=== PATIENT | male | born 1950 | race Caucasian/White ===

== ENCOUNTER 2019-12-14 06:35 | Outpatient (REF) | payer MEDICARE, OTHER, SELFPAY ==
[2019-12-14 08:06] LABS: MANUAL DIFF FLAG NO
[2019-12-14 08:14] LABS: Basophils Percent Auto 0.4 % (0-2); Eosinophils Absolute Auto 0.3 X10*3/uL (0.0-0.4); Eosinophils Percent Auto 3.3 % (0-4); Hematocrit 44.4 % (42-52); Hemoglobin 14.3 g/dl (14.0-18.0); Imm Gran Abs Auto 0.05 X10*3/uL (0.00-0.03); Imm Gran Pct Auto 0.7 % (0.0-0.4); Lymphocytes Percent Auto 12.9 % (20-40); Mean Corpuscular HGB Conc 32.2 g/dl (31.0-36.0); Mean Corpuscular Hemoglobin 28.9 pg (27.0-33.0); Mean Corpuscular Volume 89.9 fL (80-98); Mean Platelet Volume 9.7 fL (9.4-12.4); Monocytes Absolute Auto 0.7 X10*3/uL (0.1-1.2); Monocytes Percent Auto 8.9 % (2-11); Neutrophils Absolute Auto 5.6 X10*3/uL (2.0-8.3); Neutrophils Percent Auto 73.8 % (45-73); Platelet Count 271 X10*3/uL (160-400); Red Blood Count 4.94 X10*6/uL (4.60-5.80); Red Cell Distribution Width 12.8 % (11.0-16.0); White Blood Count 7.6 X10*3/uL (4.8-10.8)
[2019-12-14 08:17] LABS: Appearance Urine CLEAR; Color Urine YELLOW; Glucose Urine UA NEG (NEG); Leukocyte Esterase Urine NEG (NEG); Nitrite Urine NEG (NEG); Specific Gravity - Urine 1.015 (1.005-1.025); Urine Blood NEG (NEG); Urine Ketones NEG (NEG); Urine Protein NEG (NEG-TRACE)
[2019-12-14 08:43] LABS: Creatinine Urine 50.72 mg/dL; Microalbum/Creatinine Ratio Ur 43.3 ug/mg cr
[2019-12-14 09:11] LABS: Alanine Aminotransferase 35 U/L (0-40); Albumin Level 4.8 g/dL (3.5-5.0); Alkaline Phosphatase 42 U/L (39-117); Anion Gap 12 (12-20); Aspartate Amino Transferase 27 U/L (5-37); Bilirubin Total 0.9 mg/dL (0.0-1.0); Blood Urea Nitrogen 14 mg/dL (9-16); Calcium 9.6 mg/dL (8.4-10.2); Carbon Dioxide 29 mmol/L (22-29); Chloride 103 mmol/L (96-108); Cholesterol 137 mg/dL; Estimated Average Glucose 126 mg/dL; Estimated Glomerular Filt Rate > 60; Glucose Fasting 100 mg/dL (60-99); HDL Cholesterol 53 mg/dL; LDL Cholesterol Calculated 60 mg/dl; Potassium 4.7 mmol/l (3.3-5.1); Sodium 139 mmol/L (135-145); Total Protein 7.3 g/dL (6.5-8.0); Triglycerides 124 mg/dL
[2019-12-14 09:33] LABS: Prostate Specific Antigen 1.28 ng/mL (<0.05-4.0); Thyroid Stimulating Hormone 3.47 mIU/mL (0.32-4.0)
== END 2019-12-14 06:36 | disposition home or self-care (01) ==
LOC: HO.LAB 06:35
PROVIDERS: PCP Internal Medicine; Visit Provider Internal Medicine
DX: I25.10 Atherosclerotic heart disease of native coronary artery without angina pectoris (principal); E11.40 Type 2 diabetes mellitus with diabetic neuropathy, unspecified; E78.00 Pure hypercholesterolemia, unspecified; E07.9 Disorder of thyroid, unspecified; Z12.5 Encounter for screening for malignant neoplasm of prostate
CPT/HCPCS: 36415; 80053; 80061; 81003; 82043; 83036; 84153; 84443; 85025

== ENCOUNTER 2019-12-16 06:29 | Day surgery (SDC) | payer MEDICARE, OTHER, SELFPAY ==
[2019-12-12 10:38] VITALS: BMI 63.2
--- NOTE | 2019-12-15 09:53 | HO.ANESPROP2 ---
Documented by User: Nida Vazquez 12/15/19 10:08 HPI - Anesthesia Eval Consult details Narrative: 69yo M for Colonoscopy PMFSH Past Medical History Medical History (Updated 12/12/19 @ 10:47 by Mansi Mojica) Aortic valvular disease Arrhythmia Back pain CAD (coronary artery disease) Cancer COPD (chronic obstructive pulmonary disease) Elevated cholesterol History of chemotherapy Hx of radiation therapy PVD (peripheral vascular disease) Surgical History Surgical History (Updated 12/12/19 @ 10:47 by Mansi Mojica) History of laryngoscopy History of surgical removal of pilonidal cyst Hx of aortic valve replacement Hx of CABG Hx of colonoscopy Social History Social History Smoking Status: Former smoker Packs Per Day: 1 Cigarettes Per Day: 20.0 Years Smoked: 45 Smoked in Last 30 Days: No Smoking Quit Date: 2009 Patient Interested in Nicotine Replacement: No Patient Given Instructions on How to Stop Smoking: No Second Hand Smoke Exposure: No Use of substances other than those prescribed or required for medical reasons: Yes Substance Use Frequency: Occasionally Advance Directives Information Provided: No Recently lost weight without trying: No Meds Allergies Allergy/AdvReac Type Severity Reaction Status Date / Time No Known Allergies Allergy Verified 12/12/19 10:47 [No Known Allergies*] Home Medications Medication Instructions Recorded Confirmed Type aspirin 81 mg PO DAILY 12/12/19 12/16/19 History cilostazol 1 tab PO BID 12/12/19 12/16/19 History ezetimibe 1 tab PO DAILY 12/12/19 12/12/19 History metoprolol succinate 1 tab PO DAILY 12/12/19 12/16/19 History rosuvastatin 1 tab PO DAILY 12/12/19 12/12/19 History Exam Exam Date and Time: December 15, 2019 0953 Height,Weight and Vital Signs: Height 5 ft 10 in Weight 200 kg Pertinent Lab Results Pertinent Lab Results: Laboratory Tests 12/14/19 12/14/19 06:58 06:58 WBC 7.6 Hgb 14.3 Hct 44.4 Plt Count 271 Sodium 139 Potassium 4.7 Chloride 103 Carbon Dioxide 29 BUN 14 Creatinine 0.91 Narrative Narrative: ECHO 09/2019: LVEF 60-65%, mild MAC, no obv valve path EKG 2019: NSR @83, ?LAE Carotid US 05/2019:R ICA 50-69%, L ICA 50-69% Assessment and Plan Assessment Anesthesia Assessment: Chart Reviewed Documented by User: Lissett Mathias 12/16/19 09:03 [facility] Past Medical History Medical History (Updated 12/12/19 @ 10:47 by Mansi Mojica) Aortic valvular disease Arrhythmia Back pain CAD (coronary artery disease) Cancer COPD (chronic obstructive pulmonary disease) Elevated cholesterol History of chemotherapy Hx of radiation therapy PVD (peripheral vascular disease) Family History Family history of problems with anesthesia: No Surgical History Surgical History (Updated 12/12/19 @ 10:47 by Mansi Mojica) History of laryngoscopy History of surgical removal of pilonidal cyst Hx of aortic valve replacement Hx of CABG Hx of colonoscopy History of Problems with Anesthesia: No Social History Social History Smoking Status: Former smoker Packs Per Day: 1 Cigarettes Per Day: 20.0 Years Smoked: 45 Smoked in Last 30 Days: No Smoking Quit Date: 2009 Patient Interested in Nicotine Replacement: No Patient Given Instructions on How to Stop Smoking: No Second Hand Smoke Exposure: No Use of substances other than those prescribed or required for medical reasons: Yes Substance Use Frequency: Occasionally Advance Directives Information Provided: No Recently lost weight without trying: No Meds Allergies Allergy/AdvReac Type Severity Reaction Status Date / Time No Known Allergies Allergy Verified 12/12/19 10:47 [No Known Allergies*] Home Medications Medication Instructions Recorded Confirmed Type aspirin 81 mg PO DAILY 12/12/19 12/16/19 History cilostazol 1 tab PO BID 12/12/19 12/16/19 History ezetimibe 1 tab PO DAILY 12/12/19 12/12/19 History metoprolol succinate 1 tab PO DAILY 12/12/19 12/16/19 History rosuvastatin 1 tab PO DAILY 12/12/19 12/12/19 History Exam Height,Weight and Vital Signs: Vital Signs Temp Pulse Resp BP Pulse Ox 12/16/19 07:01 96.6 F L 88 16 129/72 96 Airway Mallampati Class: I TM Dist: >3cm Neck ROM: Full Denture: Upper and Lower Loose/Missing/Broken Teeth: Yes (Few teeth bottom- not loose) Heart: RRR+ systolic murmur Lungs: CTAB Assessment and Plan Assessment Anesthesia Assessment: Anesthesia Plan Discussed and Chart Reviewed Final Anesthetic Review NPO: Yes ASA Class: III Final Preanesthetic Review: No Changes in Pt Med Stat, Meds/Allgs Chart Reviewed, Consent Obtained/Reviewed and Anes Risks/Benef Reviewed Patient Risk: Intermediate Procedure Risk: Low Anesthetic Plan Anesthetic Plan: MAC: Disposition: Standard PACU
--- NOTE | 2019-12-16 | ECG_ITS ---
Test Reason : HX CABG PREOP Blood Pressure : / mmHG Vent. Rate : 083 BPM Atrial Rate : 083 BPM P-R Int : 114 ms QRS Dur : 094 ms QT Int : 386 ms P-R-T Axes : 081 016 037 degrees QTc Int : 453 ms Normal sinus rhythm Normal ECG No previous ECGs available Referred By: Nida Vazquez Electronically Signed By:DOUG ESCOBAR MD
[2019-12-16 07:01] VITALS: BP 129/72; PULSE 88; RESP 16; TEMP 35.9; O2SAT 96
[2019-12-16] MEDS: Lactated Ringers 1,000 ML 50 ML IVCONT (07:03)
[2019-12-16 07:04] VITALS: BMI 27.2
[2019-12-16] MEDS: Ampicillin Sodium 2 GM in 0.9 % Sodium Chloride 100 ML IV (07:52)
[2019-12-16] MEDS: Gentamicin Sulfate/NaCl 80 MG/100 ML PIGGYBACK 100 MG IV (08:18)
[2019-12-16 10:01] VITALS: BP 94/46; PULSE 78; RESP 16; TEMP 36.1; O2SAT 97
[2019-12-16 10:16] VITALS: BP 113/53; PULSE 82; RESP 18; TEMP 36.1; O2SAT 94
--- NOTE | 2019-12-16 10:35 | OP_ITS ---
SURGEON: Jorge Farmer MD INDICATIONS: The patient presents for evaluation of personal history of tubular adenoma of the colon. Full consent has been obtained from him for this, including risks of bleeding and perforation. PREOPERATIVE DIAGNOSIS: POSTOPERATIVE DIAGNOSIS: PROCEDURE PERFORMED: Colonoscopy to cecum and terminal ileum with snare polypectomy, and placement of resolution clips. ESTIMATED BLOOD LOSS: COMPLICATIONS: ANESTHESIA: Monitored anesthesia care. ASSISTANTS: SPECIMENS: PREOPERATIVE DIAGNOSES: Personal history of tubular adenoma of the colon and colorectal cancer screening. POSTOPERATIVE DIAGNOSES: Personal history of tubular adenoma of the colon and colorectal cancer screening, colon polyps, diverticulosis and internal hemorrhoids. DESCRIPTION OF PROCEDURE: The patient was placed in the left lateral decubitus position. The digital rectal exam revealed no abnormalities. The Olympus video pediatric colonoscope was entered into the rectum and advanced easily to the cecum. Once in the cecum, I did identify normal-appearing cecal pouch with appendiceal orifice and a normal-appearing ileocecal valve. The terminal ileum was cannulated and appeared normal. Scope was withdrawn back in the colon. The entire cecum and ileocecal valve appeared normal. The scope was then slowly withdrawn assessing all mucosal surfaces carefully. Preparation was excellent. At 50 cm, there were 2 flat approximately 5 or 6 mm polyps, which were each snared and recovered by suction. The polypectomy sites appeared clean, without any sign of residual polyp nor bleeding. I did place a single resolution clip on each polypectomy site given that he has to be back on his aspirin and cilostazol. I did not visualize any other polyps, colitis, nor angiodysplasia. There was a moderate amount of sigmoid diverticulosis. In the rectum, scope was retroflexed visualizing some small internal hemorrhoids. The rectal mucosa appeared normal. The scope was straightened out and withdrawn from the patient. He tolerated the procedure well and was returned to recovery area in stable condition. IMPRESSION: 1. Colon polyps, status post snare polypectomy, and placement of resolution clips. 2. Diverticulosis. 3. Internal hemorrhoids. PLAN: The results of the pathology will be checked. I would recommend a repeat colonoscopy in 5 years for further screening and surveillance. He was advised that he could resume his aspirin and cilostazol tomorrow. He did receive preprocedure antibiotics for prophylaxis in regard to his aortic valve replacement and was given a prescription for amoxicillin to use later today. This has been discussed with his . MD GILA Butler/ACOSTA / [id number] SHEEBA
--- NOTE | 2019-12-16 10:38 | HO.POSTANES ---
Post Anesthesia Evaluation Post Anesthesia Evaluation Vital Signs: Vital Signs Temp Pulse Resp BP Pulse Ox 12/16/19 10:16 97 F 82 18 113/53 L 94 12/16/19 10:01 97 F 78 16 94/46 L 97 12/16/19 07:01 96.6 F L 88 16 129/72 96 Anesthesia: Monitored Mental Status: Awake Pain Control: Satisfactory Nausea/Vomiting: None Anesthesia-Related Issues: No Anes. Related Issues
== END 2019-12-16 10:56 | disposition home or self-care (01) ==
PROVIDERS: PCP Internal Medicine; Visit Provider Internal Medicine
PROC: 0DJD8ZZ Inspection of Lower Intestinal Tract, Via Natural or Artificial Opening Endoscopic (ICD-10-PCS; CPT 45378; principal; 2019-12-16 07:30)
DX: Z12.11 Encounter for screening for malignant neoplasm of colon (principal); Z86.010 Personal history of colon polyps; D12.5 Benign neoplasm of sigmoid colon; K57.30 Diverticulosis of large intestine without perforation or abscess without bleeding; K64.8 Other hemorrhoids; I25.10 Atherosclerotic heart disease of native coronary artery without angina pectoris; Z95.1 Presence of aortocoronary bypass graft; Z95.2 Presence of prosthetic heart valve; J44.9 Chronic obstructive pulmonary disease, unspecified; Z87.891 Personal history of nicotine dependence; Z79.82 Long term (current) use of aspirin; Z79.899 Other long term (current) drug therapy; Z92.21 Personal history of antineoplastic chemotherapy; Z92.3 Personal history of irradiation
CPT/HCPCS: 45385; 88305; 93005; J0290; J1580

== ENCOUNTER → 2020-01-06 14:18 | Outpatient (BNVA) | payer MEDICARE, OTHER, SELFPAY | PROVIDERS: PCP Internal Medicine; Visit Provider Physician Assistant Medical | DX: Z76.89 Persons encountering health services in other specified circumstances (principal) ==

== ENCOUNTER 2020-01-16 07:21 | Outpatient (REF) | payer MEDICARE, OTHER, SELFPAY ==
--- NOTE | 2020-01-16 07:23 | CT_ITS ---
EXAMINATION: CT CHEST SCREENING CLINICAL INFORMATION: Former smoker COMPARISON: Previous chest x-rays most recent August 2015 TECHNIQUE: Multidetector volumetric CT imaging of the chest is performed without contrast using low dose technique. Additional 2D coronal and sagittal reformatted images and axial 3D maximum intensity projection (MIP) images are generated on the CT workstation. This CT examination was performed using dose optimization techniques as appropriate, variously including the following: *Automated exposure control *Adjustment of mA and/or kV according to patient size (this includes techniques or standardized protocols for targeted exams where dose is matched to indication/reason for exam; i.e. extremities or head) *Use of iterative reconstruction technique DLP: 65 mGy-cm FINDINGS: LUNGS: There is a 4 mm calcified right lower lobe nodule axial image 316 series 5. There are increased peripheral interstitial markings and increased attenuation questionable for mild interstitial lung disease. No endobronchial or endotracheal lesion is seen. MEDIASTINUM: There are small mediastinal lymph nodes. No enlarged lymph nodes are seen. There is a prosthetic aortic valve. There is a severe atherosclerotic disease. The heart does not appear enlarged. There is no pericardial effusion. PLEURA: There is no pleural effusion. No pleural mass or thickening. AXILLA: No lymphadenopathy. UPPER ABDOMEN: Unremarkable OSSEOUS STRUCTURES: There are degenerative changes of the spine. There is a united median sternotomy. CT/CT lung screening IMPRESSION: Small calcified right lower lobe pulmonary nodule probably representing a calcified granuloma. Question mild peripheral interstitial lung disease. Prosthetic aortic valve. Severe atherosclerotic disease. ASSESSMENT: Lung-RADS category 2: Benign RECOMMENDATION: Annual low-dose chest CT follow-up recommended.
== END 2020-01-16 07:22 | disposition home or self-care (01) ==
LOC: HO.CT 07:21
PROVIDERS: Visit Provider Physician Assistant Medical
DX: Z12.2 Encounter for screening for malignant neoplasm of respiratory organs (principal); Z87.891 Personal history of nicotine dependence
CPT/HCPCS: 71250

== ENCOUNTER → 2020-03-29 07:47 | Outpatient (BNV) | payer MEDICARE, OTHER, SELFPAY | PROVIDERS: PCP Internal Medicine; Visit Provider Internal Medicine Medical Oncology | DX: C76.0 Malignant neoplasm of head, face and neck (principal) | CPT/HCPCS: 99212; 99213; 99214 ==

== ENCOUNTER 2020-05-23 14:20 | Outpatient (REF) | payer MEDICARE, OTHER, SELFPAY ==
[2020-05-23 15:46] LABS: Blood Urea Nitrogen 22 mg/dL (9-16); Estimated Glomerular Filt Rate > 60
== END 2020-05-23 14:21 | disposition home or self-care (01) ==
LOC: HO.LAB 14:20
PROVIDERS: PCP Internal Medicine; Visit Provider Surgery Vascular Surgery
DX: I73.9 Peripheral vascular disease, unspecified (principal); Z95.828 Presence of other vascular implants and grafts
CPT/HCPCS: 36415; 82565; 84520

== ENCOUNTER 2020-05-29 13:41 | Outpatient (REF) | payer MEDICARE, OTHER, SELFPAY ==
--- NOTE | ~2020-05-29 | CT_ITS ---
STUDY PERFORMED: CTA ABDOMEN, PELVIS AND LOWER EXTREMITY RUNOFF WITH CONTRAST HISTORY: Peripheral arterial disease. Threatened bypass. DESCRIPTION: Routine abdominal aorta and lower extremity runoff CTA protocol with contrast was performed. 100 mL of Omnipaque 350 was administered. 3D POSTPROCESSING: Multiple 3-D angiographic images were processed from the initial data set by the [facility] under concurrent physician supervision. DOSE LOWERING TECHNIQUES: This CT examination was performed using dose optimization techniques as appropriate, variously including the following: - Automated exposure control - Adjustment of mA and/or kV according to patient size (this includes techniques or standardized protocols for targeted exams where dose is matched to indication/reason for exam; i.e. extremities or head) - Use of iterative reconstruction technique DLP: 436 mGycm. COMPARISON: [facility] of 01/21/2013. FINDINGS: VASCULAR: ABDOMINAL AORTA: No aneurysm. Heavily calcified infrarenal segment with less than 40% stenosis at the level of the inferior mesenteric artery. The luminal diameter at the bifurcation is 1.1 x 1.1 cm. RIGHT LOWER EXTREMITY: - Common Iliac Artery: Calcification limits evaluation but there is probably at least a 50% calcified stenosis in the proximal segment and a 30% calcified stenosis in the distal segment. - Internal Iliac Artery: Heavily diseased. - External Iliac Artery: Mild disease. - Common Femoral Artery: Widely patent. Suspect patchy angioplasty. The bifurcation is patent. - Profunda Femoral Artery: Patent with mild disease. - Superficial Femoral Artery: Chronic occlusion. Femoropopliteal bypass with patent proximal and distal anastomoses. - Popliteal Artery: Chronic occlusion of the above-knee segment. The below-knee segment is patent there is - Posterior Tibial Artery: Mild disease proximally. - Peroneal Artery: Likely occluded distally. - Anterior Tibial Artery: Likely occluded distally. LEFT LOWER EXTREMITY: - Common Iliac Artery: Calcified with mild stenoses. - Internal Iliac Artery: Heavily diseased. - External Iliac Artery: Stent construct spans the distal common iliac through the external iliac. This stent is patent - Common Femoral. Artery: Patent with patch angioplasty. - Profunda Femoral Artery: Moderate proximal stenosis. Large caliber with collateralization of the popliteal artery. - Superficial Femoral Artery: Chronic occlusion. - Popliteal Artery: Heavily diseased with segmental occlusions. - Posterior Tibial Artery: Mild proximal disease. - Peroneal Artery: Tapers in the lower calf. - Anterior Tibial Artery: Mild proximal disease. CELIOMESENTERIC ARTERIES: The celiac artery is patent. The superior mesenteric artery is patent. The inferior mesenteric artery is patent. RENAL ARTERIES: The right renal artery is patent. The left renal artery is patent. The right kidney measures 12.5 cm. The left kidney measures 13.1 cm. NONVASCULAR: Lung Bases: The visualized lung bases are unremarkable. Liver, Gallbladder and Biliary Tree: The liver is normal in size, shape, and attenuation. No focal hepatic lesion or biliary ductal dilatation is present. The gallbladder is unremarkable with no evidence of radiopaque gallstones, gallbladder wall thickening, or obvious pericholecystic inflammatory changes. Pancreas: Unremarkable. Spleen: Unremarkable. Adrenal Glands: Unremarkable. Kidneys and Ureters: The kidneys are normal in size, shape, and attenuation. No hydronephrosis, hydroureter, or calculi seen. No perinephric stranding. Bladder: Unremarkable. Gastrointestinal Tract: The small bowel is normal in caliber. Severe diverticulosis of the sigmoid colon. Abdominal Wall: No significant hernia is appreciated. Lymph Nodes: Normal. Pelvic Viscera: The prostate is enlarged. Osseous Structures: Degenerative changes in the spine. CT/CT angio abd aorta runoff IMPRESSION: Heavily calcified infrarenal abdominal aorta. Right lower extremity: 50% focal stenosis in the common iliac artery. 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 Patent femoropopliteal bypass. Single vessel runoff via mildly diseased posterior tibial artery. Left lower extremity: Patent iliac artery stent construct. Large-caliber profunda femoral artery collateralizing the lower extremity. The profunda femoral artery has a moderate proximal stenosis. Chronically occluded superficial femoral artery and segmentally occluded popliteal artery. Two-vessel runoff via mildly diseased posterior tibial and anterior tibial arteries.
== END 2020-05-29 13:42 | disposition home or self-care (01) ==
LOC: HO.CT 13:41
PROVIDERS: Visit Provider Surgery Vascular Surgery
DX: I73.9 Peripheral vascular disease, unspecified (principal); Z95.828 Presence of other vascular implants and grafts
CPT/HCPCS: 75635; Q9967

== ENCOUNTER → 2020-06-05 08:30 | Outpatient (BNVA) | payer MEDICARE, OTHER, SELFPAY | PROVIDERS: PCP Internal Medicine; Visit Provider Internal Medicine Cardiovascular Disease | DX: I25.10 Atherosclerotic heart disease of native coronary artery without angina pectoris (principal); Z95.2 Presence of prosthetic heart valve; Z79.899 Other long term (current) drug therapy | CPT/HCPCS: 99212 ==

== ENCOUNTER 2020-06-12 10:38 | Outpatient (REF) | payer MEDICARE, OTHER, SELFPAY ==
[2020-06-12 11:19] LABS: Estimated Average Glucose 120 mg/dL; Hemoglobin A1c % 5.8 %
[2020-06-12 11:59] LABS: Alanine Aminotransferase 28 U/L (0-40); Albumin Level 4.6 g/dL (3.5-5.0); Alkaline Phosphatase 44 U/L (39-117); Aspartate Amino Transferase 20 U/L (5-37); Bilirubin Direct 0.3 mg/dL (0.0-0.5); Bilirubin Total 0.6 mg/dL (0.0-1.0); Cholesterol 129 mg/dL; Glucose Fasting 109 mg/dL (60-99); HDL Cholesterol 56 mg/dL; LDL Cholesterol Calculated 53 mg/dl; Total Protein 7.1 g/dL (6.5-8.0); Triglycerides 102 mg/dL
[2020-06-12 12:11] LABS: Reflex LDLD? No
== END 2020-06-12 10:39 | disposition home or self-care (01) ==
LOC: HO.LNP 10:38
PROVIDERS: PCP Internal Medicine; Visit Provider Internal Medicine
DX: E78.00 Pure hypercholesterolemia, unspecified (principal); E11.40 Type 2 diabetes mellitus with diabetic neuropathy, unspecified
CPT/HCPCS: 80061; 80076; 82947; 83036

== ENCOUNTER 2020-06-28 07:29 | Outpatient (REF) | payer MEDICARE, OTHER, SELFPAY ==
[2020-06-28 08:13] LABS: Hematocrit 40.5 % (42-52); Hemoglobin 13.2 g/dl (14.0-18.0); Mean Corpuscular HGB Conc 32.6 g/dl (31.0-36.0); Mean Corpuscular Hemoglobin 28.9 pg (27.0-33.0); Mean Corpuscular Volume 88.6 fL (80-98); Mean Platelet Volume 9.9 fL (9.4-12.4); Platelet Count 270 X10*3/uL (160-400); Red Blood Count 4.57 X10*6/uL (4.60-5.80); White Blood Count 7.4 X10*3/uL (4.8-10.8)
[2020-06-28 08:36] LABS: Anion Gap 14 (12-20); Blood Urea Nitrogen 15 mg/dL (9-16); Carbon Dioxide 26 mmol/L (22-29); Chloride 105 mmol/L (96-108); Estimated Glomerular Filt Rate > 60; Potassium 4.9 mmol/L (3.3-5.1); Sodium 140 mmol/L (135-145)
== END 2020-06-28 07:30 | disposition home or self-care (01) ==
LOC: HO.LAB 07:29
PROVIDERS: PCP Internal Medicine; Visit Provider Surgery Vascular Surgery
DX: I70.613 Atherosclerosis of nonbiological bypass graft(s) of the extremities with intermittent claudication, bilateral legs (principal)
CPT/HCPCS: 36415; 80051; 82565; 84520; 85027

== ENCOUNTER → 2020-11-09 08:23 | Outpatient (REF) | payer MEDICARE, OTHER, SELFPAY ==
--- NOTE | 2020-11-09 08:26 | CA_ITS ---
Transthoracic Echocardiogram Patient (Last, First, Middle): Daniel Whitaker F Gender: Male Date of : 1950 Age: 70 Procedure Date: 11/09/2020 Procedure Type: Transthoracic Echocardiogram Location: OP Height: 177.8 cm Weight: 86.18 kg BSA: 2.04 m2 Heart Rate: bpm BP: 140 / 90 mmHg Chief I Dispatcher: LATANYA Referring MD: Maksim Claros MD Residential Assistant: Maksim Claros MD Symptoms: Z95.2 - Presence of prosthetic heart valve Study Quality: Technically Difficult/Contrast ECG Rhythm: Sinus Conclusions: - 1. Normal LV systolic function with impaired relaxation filling pattern 2. Bioprosthetic aortic valve in place, not well visualized but mean gradient within normal limits at 8 mm Hg 3. Moderate mitral calcification 4. Normal RV systolic pressure 5. No gross pericardial effusion Findings Procedure Information Contrast agent, definity, is being given per protocol without apparent complications. Left Ventricle Normal left ventricular size, thickness, and systolic function. The visually estimated ejection fraction is between 60-65%. Spectral Doppler is indicative of an impaired relaxation filling pattern. E/E prime ratio is between 8 and 15 consistent with indeterminate filling pressures. Right Ventricle The right ventricle was not well visualized. Atria The left atrium is likely dilated. There is lipomatous hypertrophy of the interatrial septum. There is no evidence of interatrial shunt. The right atrium was not well visualized. Aortic Valve A bioprosthetic aortic valve is present. The prosthetic aortic valve appears to be functioning normally. The aortic valve was not well visualized. The mean gradient is 8 mmHg. There is no aortic valve regurgitation. Mitral Valve There is mild anterior and moderate posterior mitral leaflet thickening. There is moderate mitral annular calcification. There is trace mitral valve regurgitation. There is no mitral valve stenosis. Pulmonic Valve The pulmonic valve was not well visualized. Tricuspid Valve The tricuspid valve was not well visualized. There is trace tricuspid valve regurgitation. The right ventricular systolic pressure is normal. The right ventricular systolic pressure is 14 mmHg. Normal right atrial pressure. There is no evidence of pulmonary hypertension. Great Vessels All visible segments of the aorta are normal in size. The pulmonary artery was not well visualized. Venous The inferior vena cava is normal in size and collapses greater than 50% with inspiration. Pericardium/Pleural There is no evidence of pericardial effusion. Prior Study Comparison No significant change compared to prior study dated: 09/26/2019. Measurements 2D Linear Measurements IVSd: 0.94 0.6-0.9/0.6-1.0 cm LVIDd: 5.02 3.9-5.3/4.2-5.9 cm LVIDd Index: 2.46 2.4-3.2/2.2-3.1 cm/m2 LVIDs: 3.38 2.0-3.6 cm LVPWd: 0.94 0.7-1.1 cm LA Diam: 4.30 2.7-3.8/3.0-4.0 cm LAIDs Index: 2.11 1.5-2.3 cm/m2 LV Mass: 209.19 67-162/88-224 g LV Mass Index: 102.55 43-95/49-115 g/m2 LVOT Diam: 2.00 3.0+(-)1.3 cm 2D Systolic Function EF 4C: 60.50 >55% EF 2C: 69.70 >55% EF BiP: 65.80 >55% Mitral Valve MV Pk E: 0.85 MV PK A: 0.92 MV Decel Time: 174.00 E/A: 0.90 E'Lateral: 7.62 E'Medial: 6.74 E/E' Med: 12.50 E/E' Lat: 11.10 PHT: 51.00 MVA PHT: 4.31 Decel [place]: 4.87 Aortic Valve AoV Pk Pilo: 2.12 AoV Mn Pilo: 1.33 AoV VTI: 0.37 AoV Pk Grad: 18.00 Aov Mn Grad: 8.00 ALEXANDRA Cont.VTI: 1.69 LVOT LVOT Pk Pilo: 0.83 LVOT Mn Pilo: 0.57 LVOT VTI: 0.20 LVOT Pk Grad: 3.00 LVOT Mn Grad: 1.00 LVOT Diam: 2.00 LVOT Area: 3.14 Diastolic Function MV Pk E: 0.85 MV Pk A: 0.92 E/A: 0.90 E'Medial: 6.74 E/E' Med: 12.50 E' Laterial: 7.62 E/E' Lat: 11.10 Right Ventricle TAPSE (mm): 1.96 TVS' Pilo: 11.00 Tricuspid Valve TR Pk Pilo: 1.68 TR Pk Grad: 11.00 RA Press: 3.00 RVSP: 14.00 Great Vessels Aorta Ao Asc: 2.90 2.1-3.4 cm Updated in Other Vendor System with Status of Final Maksim Claros MD electronically signed on 11/11/2020 11:38:07 AM with status of Final
== END ==
LOC: HO.CARD 08:23
PROVIDERS: Visit Provider Internal Medicine Cardiovascular Disease
DX: Z95.2 Presence of prosthetic heart valve (principal)
CPT/HCPCS: 93306; Q9957

== ENCOUNTER → 2020-11-20 08:22 | Outpatient (BNVA) | payer MEDICARE, OTHER, SELFPAY | PROVIDERS: PCP Internal Medicine; Referring Provider Internal Medicine; Visit Provider Internal Medicine Cardiovascular Disease | DX: I25.10 Atherosclerotic heart disease of native coronary artery without angina pectoris (principal); Z95.2 Presence of prosthetic heart valve | CPT/HCPCS: 99212 ==

== ENCOUNTER 2020-12-24 10:26 | Outpatient (REF) | payer MEDICARE, OTHER, SELFPAY ==
[2020-12-24 10:31] LABS: MANUAL DIFF FLAG NO
[2020-12-24 11:08] LABS: Basophils Percent Auto 0.4 % (0-2); Eosinophils Absolute Auto 0.3 X10*3/uL (0.0-0.4); Eosinophils Percent Auto 3.2 % (0-4); Hematocrit 44.6 % (42-52); Hemoglobin 14.6 g/dl (14.0-18.0); Imm Gran Abs Auto 0.03 X10*3/uL (0.00-0.03); Imm Gran Pct Auto 0.3 % (0.0-0.4); Lymphocytes Absolute Auto 1.2 X10*3/uL (1.2-4.9); Lymphocytes Percent Auto 13.2 % (20-40); Mean Corpuscular HGB Conc 32.7 g/dl (31.0-36.0); Mean Corpuscular Hemoglobin 29.3 pg (27.0-33.0); Mean Corpuscular Volume 89.4 fL (80-98); Mean Platelet Volume 10.6 fL (9.4-12.4); Monocytes Absolute Auto 0.8 X10*3/uL (0.1-1.2); Neutrophils Percent Auto 74.9 % (45-73); Platelet Count 244 X10*3/uL (160-400); Red Blood Count 4.99 X10*6/uL (4.60-5.80); Red Cell Distribution Width 12.8 % (11.0-16.0); White Blood Count 9.3 X10*3/uL (4.8-10.8)
[2020-12-24 11:26] LABS: Appearance Urine CLEAR; Color Urine YELLOW; Glucose Urine UA NEG (NEG); Leukocyte Esterase Urine NEG (NEG); Nitrite Urine NEG (NEG); Specific Gravity - Urine 1.015 (1.005-1.025); Urine Blood NEG (NEG); Urine Ketones NEG (NEG); Urine Protein NEG (NEG-TRACE)
[2020-12-24 11:33] LABS: Estimated Average Glucose 126 mg/dL
[2020-12-24 11:39] LABS: Alanine Aminotransferase 51 U/L (0-40); Albumin Level 4.5 g/dL (3.5-5.0); Alkaline Phosphatase 42 U/L (39-117); Anion Gap 13 (12-20); Aspartate Amino Transferase 35 U/L (5-37); Bilirubin Total 0.8 mg/dL (0.0-1.0); Blood Urea Nitrogen 12 mg/dL (9-16); Calcium 9.4 mg/dL (8.4-10.2); Carbon Dioxide 26 mmol/L (22-29); Chloride 104 mmol/L (96-108); Cholesterol 128 mg/dL; Estimated Glomerular Filt Rate > 60; Glucose Fasting 117 mg/dL (60-99); HDL Cholesterol 49 mg/dL; LDL Cholesterol Calculated 44 mg/dl; Potassium 4.2 mmol/L (3.3-5.1); Sodium 139 mmol/L (135-145); Triglycerides 175 mg/dL
[2020-12-24 11:43] LABS: PSA,Total (Free>4and<10) 0.51 ng/mL (0.00-4.00); TSH reflex Free T4 4.43 uIU/mL (0.32-4.0)
[2020-12-24 12:20] LABS: Free T4 (Free Thyroxine) 0.76 ng/dL (0.71-1.85)
[2020-12-24 12:32] LABS: Reflex LDLD? No
[2020-12-24 14:07] LABS: Creatinine Urine 81.11 mg/dL; Microalbum/Creatinine Ratio Ur 54.2 ug/mg cr
== END 2020-12-24 10:27 | disposition home or self-care (01) ==
LOC: HO.LNP 10:26
PROVIDERS: Visit Provider Internal Medicine
DX: Z00.00 Encounter for general adult medical examination without abnormal findings (principal); Z12.5 Encounter for screening for malignant neoplasm of prostate; E78.00 Pure hypercholesterolemia, unspecified; E11.40 Type 2 diabetes mellitus with diabetic neuropathy, unspecified; I25.10 Atherosclerotic heart disease of native coronary artery without angina pectoris; E07.9 Disorder of thyroid, unspecified
CPT/HCPCS: 80053; 80061; 81003; 82043; 83036; 84153; 84439; 84443; 85025

== ENCOUNTER 2021-01-24 08:49 | Outpatient (REF) | payer MEDICARE, OTHER, SELFPAY ==
--- NOTE | ~2021-01-24 | US_ITS ---
EXAMINATION: US THYROID CLINICAL INFORMATION: Thyroid mass. History of left sinus cancer with solitary left neck lymph node. COMPARISON: Thyroid ultrasound 07/12/2018 and 04/14/2013. CT soft tissue neck 05/16/2013. TECHNIQUE: Linear transducer grayscale and color Doppler examination with attention to the region of the thyroid. FINDINGS: SIZE: Measurements of the thyroid lobes and nodules are given in sagittal, anteroposterior and transverse dimensions respectively. Right Thyroid Lobe: 4.0 x 1.9 x 1.6 cm, volume 6.2 mL. Previously 4.5 x 1.9 x 1.7 cm, volume 7.5 mL. Parenchyma: The gland echotexture is homogeneous. Thyroid vascularity is normal. Left Thyroid Lobe: 3.2 x 1.3 x 1.1 cm, volume 2.2 mL. Previously 4.0 x 0.9 x 1.5 cm, volume 2.8 mL. Parenchyma: The gland echotexture is homogeneous. Thyroid vascularity is normal. Isthmus: 0.3 cm in maximum AP dimension. Previously 0.6 cm. Estimated total number of nodules greater than or equal to 1 cm: 0. Editor In Chief nodules are described as follows: 1. Location: Right lower pole. Size: 0.7 x 0.7 x 0.7 cm, volume 0.18 mL. Previously: 0.7 x 0.6 x 0.6 cm, volume 0.13 mL. Nodule characteristics: Composition: Solid (2). Echogenicity: Hyperechoic (1). Shape: Not taller than wide (0). Margins: Smooth (0). Echogenic Foci: Peripheral calcifications (2). ACR TI-RADS total points: 5 ACR TI-RADS category: 4 Significant change in size (>/= 20% in 2 dimensions and minimal increase of 2 mm or 50% or greater increase in volume): Change in features: Change in ACR TI-RADS risk category: NODES: No lymphadenopathy is seen in the tissue surrounding the thyroid gland. US/US thyroid IMPRESSION: Solitary left thyroid nodule. This is stable from old ultrasounds going back to April 2013. This did not demonstrate increased uptake on PET CT scan. ACR TI-RADS RECOMMENDATION REFERENCE: Ultrasound-guided fine-needle aspiration, followup ultrasound, no further follow up. * TR1 (0 point) and TR 2 (2 points): No FNA or follow up * TR3 (3 points): FNA if more than or equal to 2.5 cm in maximum dimension, followup ultrasound in 1, 3 and 5 years if 1.5 to 2.4 cm in maximum dimension. * TR4 (4-6 points): FNA if more than or equal to 1.5 cm in maximum dimension, followup ultrasound in 1, 2, 3 and 5 years if 1 to 1.4 cm in maximum dimension. * TR5 (more than or equal to 7 points): FNA if more than or equal to 1 cm in maximum dimension, followup ultrasound every year for 5 years if 0.5 to 0.9 cm in maximum dimension. * TR3, TR4 or TR5 nodules that are below the size threshold for follow up receive no follow up.
== END 2021-01-24 08:50 | disposition home or self-care (01) ==
LOC: HO.US 08:49
PROVIDERS: PCP Internal Medicine; Visit Provider Internal Medicine
DX: E07.9 Disorder of thyroid, unspecified (principal)
CPT/HCPCS: 76536

== ENCOUNTER → 2021-02-04 10:42 | Outpatient (BNVA) | payer MEDICARE, OTHER, SELFPAY | PROVIDERS: PCP Internal Medicine; Referring Provider Internal Medicine; Visit Provider Internal Medicine Cardiovascular Disease | DX: I25.10 Atherosclerotic heart disease of native coronary artery without angina pectoris (principal); I73.9 Peripheral vascular disease, unspecified; Z95.2 Presence of prosthetic heart valve | CPT/HCPCS: 93005; 99212 ==

== ENCOUNTER 2021-03-14 06:22 | Outpatient (REF) | payer MEDICARE, OTHER, SELFPAY ==
[2021-03-14 07:25] LABS: Blood Urea Nitrogen 15 mg/dL (9-16); Estimated Glomerular Filt Rate > 60
== END 2021-03-14 06:23 | disposition home or self-care (01) ==
LOC: HO.LAB 06:22
PROVIDERS: PCP Internal Medicine; Visit Provider Otolaryngology
DX: R22.1 Localized swelling, mass and lump, neck (principal)
CPT/HCPCS: 36415; 82565; 84520

== ENCOUNTER 2021-04-03 08:21 | Outpatient (REF) | payer MEDICARE, OTHER, SELFPAY ==
--- NOTE | ~2021-04-03 | CT_ITS ---
EXAMINATION: CT SOFT TISSUE NECK WITH CONTRAST CLINICAL INFORMATION: 70-year-old with localized swelling, mass and lump on left. History of left-sided head and neck CA. COMPARISON: 05/16/2013 CT TECHNIQUE: Following the intravenous administration of 60 mL of Omnipaque 350 intravenous contrast, helical imaging was performed in the axial plane with generation of coronal and sagittal reformatted images. This CT examination was performed using dose optimization techniques as appropriate, variously including the following: *Automated exposure control *Adjustment of mA and/or kV according to patient size (this includes techniques or standardized protocols for targeted exams where dose is matched to indication/reason for exam; i.e. extremities or head) *Use of iterative reconstruction technique DLP: 402 mGy-cm FINDINGS: Skull Base: The bony skull base appears grossly intact. Limited assessment of the visualized intracranial structures. No acute intracranial process. Bilateral carotid calcifications. The mastoids and middle ear cavities are unopacified. There are some retention cysts in the maxillary sinuses bilaterally and some mucosal thickening in the ethmoid complex, sphenoid sinus and frontal sinuses. Visualized calvarial structures appear intact. Suprahyoid Neck: The nasopharynx, metal flooring installer and parapharyngeal spaces appear within normal limits. The oropharynx is smoothly contoured and relatively symmetric with no abnormal enhancement. Calcification of the stylohyoid ligaments is noted bilaterally. The parotid glands are normal in morphology and attenuation, with prominent accessory parotid tissue adjacent to the masseter muscles again noted. The oral tongue, base of the tongue and floor of the mouth structures are symmetric and normal in attenuation. Small, nonpathologic-appearing, nonenlarged submandibular space lymph nodes are noted. The submandibular glands are somewhat atrophic in appearance compared to the prior study. There is a small, nonenlarged submental lymph node, unchanged. Previously noted level IIa lymph nodes bilaterally have diminished in size considerably from previous study. There is thickening of the platysma, left more than right, with some streaky changes in the fat deep to the platysma on the left, likely posttreatment changes. Some associated streaky soft tissue adjacent to the left sternocleidomastoid muscle is noted, with volume loss of the left sternocleidomastoid muscle, also likely posttreatment change. Infrahyoid Neck: There is architectural distortion of the soft tissues just lateral to the left thyroid lamina and hyoid bone, likely posttreatment change. Some small enhancing vessels are seen in this region which is lateral to the left piriform sinus. No definite recurrent asymmetric nodularity or thickening is seen within the left piriform sinus. The preepiglottic and paraglottic fat stripes are maintained. No significant change in the appearance of the aryepiglottic folds. The true vocal cords are normal in attenuation and appear grossly unchanged. Mild thickening along the posterolateral hypopharynx on the left is likely posttreatment change. No abnormal focal enhancement. No lymphadenopathy identified. Redemonstrated is extensive atheromatous calcification of both carotid bulbs with suspicion for markedly decreased luminal diameter of the proximal ICAs bilaterally, possibly progressed from previous exam. Suggest correlation with carotid ultrasound. The thyroid gland appears normal. The tracheoesophageal grooves appear within normal limits. Normal enhancement of the jugular veins. Upper Chest: The visualized lung parenchyma is grossly unremarkable. The visualized mediastinal structures demonstrate atheromatous calcifications of the thoracic aorta and multiple mediastinal lymph nodes, with the largest of these measuring 9 mm in greatest short axis in the ductus region. Skeletal: Osteopenia noted with multilevel cervical DDD and spondylosis and cervical facet arthropathy. Mild lordotic reversal at C3-C4. Otherwise, skeletal structures appear grossly intact. No focally aggressive osseous lesions. Other Comments: None. CT/CT soft tissue neck w con IMPRESSION: 1. Posttreatment changes noted on the left side of the neck, with no convincing evidence for local recurrence or lymphadenopathy. 2. Extensive atheromatous calcifications of the carotid bulbs bilaterally with possible progression of luminal narrowing bilaterally since prior study. Suggest correlation with carotid ultrasound. 3. Multiple mediastinal lymph nodes largely unchanged in appearance from the previous CT chest of 01/16/2020.
[2021-04-03] MEDS: iohexoL 350 MG/ML 100 ML INFUS..BTL IV (09:26)
== END 2021-04-03 08:22 | disposition home or self-care (01) ==
LOC: HO.CT 08:21
PROVIDERS: PCP Internal Medicine; Visit Provider Otolaryngology
DX: R22.1 Localized swelling, mass and lump, neck (principal)
CPT/HCPCS: 70491; Q9967

== ENCOUNTER 2021-06-25 10:56 | Outpatient (REF) | payer MEDICARE, OTHER, SELFPAY ==
[2021-06-25 11:11] LABS: Estimated Average Glucose 128 mg/dL; Hemoglobin A1c % 6.1 %
[2021-06-25 11:12] LABS: Alanine Aminotransferase 27 U/L (0-40); Albumin Level 4.6 g/dL (3.5-5.0); Alkaline Phosphatase 38 U/L (39-117); Aspartate Amino Transferase 23 U/L (5-37); Bilirubin Direct 0.3 mg/dL (0.0-0.5); Bilirubin Total 0.7 mg/dL (0.0-1.0); Cholesterol 130 mg/dL; Glucose Fasting 114 mg/dL (60-99); HDL Cholesterol 48 mg/dL; LDL Cholesterol Calculated 57 mg/dl; Total Protein 7.1 g/dL (6.5-8.0); Triglycerides 127 mg/dL
[2021-06-25 13:18] LABS: Reflex LDLD? No
== END 2021-06-25 10:57 | disposition home or self-care (01) ==
LOC: HO.LNP 10:56
PROVIDERS: Visit Provider Internal Medicine
DX: E11.40 Type 2 diabetes mellitus with diabetic neuropathy, unspecified (principal); E78.00 Pure hypercholesterolemia, unspecified
CPT/HCPCS: 80061; 80076; 82947; 83036

== ENCOUNTER 2021-07-01 10:44 | Outpatient (REF) | payer MEDICARE, OTHER, SELFPAY ==
[2021-07-01 10:48] LABS: MANUAL DIFF FLAG NO
[2021-07-01 11:02] LABS: Basophils Absolute Auto 0.1 X10*3/uL (0.0-0.2); Basophils Percent Auto 0.5 % (0-2); Eosinophils Absolute Auto 0.3 X10*3/uL (0.0-0.4); Hematocrit 33.5 % (42.0-52.0); Imm Gran Abs Auto 0.06 X10*3/uL (0.00-0.03); Imm Gran Pct Auto 0.6 % (0.0-0.4); Lymphocytes Absolute Auto 1.1 X10*3/uL (1.2-4.9); Lymphocytes Percent Auto 11.2 % (20-40); Mean Corpuscular HGB Conc 32.8 g/dl (31.0-36.0); Mean Corpuscular Volume 88.4 fL (80.0-98.0); Mean Platelet Volume 10.3 fL (9.4-12.4); Monocytes Absolute Auto 0.9 X10*3/uL (0.1-1.2); Neutrophils Absolute Auto 7.1 x10*3/uL (2.0-8.3); Neutrophils Percent Auto 75.7 % (45-73); Platelet Count 278 X10*3/uL (160-400); Red Blood Count 3.79 X10*6/uL (4.60-5.80); Red Cell Distribution Width 13.2 % (11.0-16.0); White Blood Count 9.4 X10*3/uL (4.8-10.8)
== END 2021-07-01 10:45 | disposition home or self-care (01) ==
LOC: HO.LNP 10:44
PROVIDERS: Visit Provider Internal Medicine
DX: K92.1 Melena (principal)
CPT/HCPCS: 85025

== ENCOUNTER 2021-07-02 10:36 | Outpatient (REF) | payer MEDICARE, OTHER, SELFPAY ==
[2021-07-02 10:40] LABS: MANUAL DIFF FLAG NO
[2021-07-02 11:25] LABS: Basophils Percent Auto 0.5 % (0-2); Eosinophils Absolute Auto 0.3 X10*3/uL (0.0-0.4); Eosinophils Percent Auto 3.9 % (0-4); Hematocrit 33.8 % (42.0-52.0); Hemoglobin 10.9 g/dl (14.0-18.0); Imm Gran Abs Auto 0.05 X10*3/uL (0.00-0.03); Imm Gran Pct Auto 0.6 % (0.0-0.4); Lymphocytes Absolute Auto 1.2 X10*3/uL (1.2-4.9); Lymphocytes Percent Auto 13.9 % (20-40); Mean Corpuscular HGB Conc 32.2 g/dl (31.0-36.0); Mean Corpuscular Hemoglobin 29.1 pg (27.0-33.0); Mean Corpuscular Volume 90.1 fL (80.0-98.0); Mean Platelet Volume 10.3 fL (9.4-12.4); Monocytes Absolute Auto 0.8 X10*3/uL (0.1-1.2); Monocytes Percent Auto 8.8 % (2-11); Neutrophils Absolute Auto 6.4 x10*3/uL (2.0-8.3); Neutrophils Percent Auto 72.3 % (45-73); Platelet Count 295 X10*3/uL (160-400); Red Blood Count 3.75 X10*6/uL (4.60-5.80); Red Cell Distribution Width 13.2 % (11.0-16.0); White Blood Count 8.8 X10*3/uL (4.8-10.8)
== END 2021-07-02 10:37 | disposition home or self-care (01) ==
LOC: HO.LNP 10:36
PROVIDERS: Visit Provider Internal Medicine
DX: D64.9 Anemia, unspecified (principal)
CPT/HCPCS: 85025

== ENCOUNTER 2021-07-04 11:31 | Outpatient (REF) | payer MEDICARE, OTHER, SELFPAY ==
[2021-07-04 11:33] LABS: MANUAL DIFF FLAG NO
[2021-07-04 11:57] LABS: Basophils Percent Auto 0.4 % (0-2); Eosinophils Absolute Auto 0.4 X10*3/uL (0.0-0.4); Eosinophils Percent Auto 4.3 % (0-4); Hematocrit 33.8 % (42.0-52.0); Hemoglobin 10.8 g/dl (14.0-18.0); Imm Gran Abs Auto 0.07 X10*3/uL (0.00-0.03); Imm Gran Pct Auto 0.7 % (0.0-0.4); Lymphocytes Absolute Auto 1.3 X10*3/uL (1.2-4.9); Lymphocytes Percent Auto 13.8 % (20-40); Mean Corpuscular Volume 90.9 fL (80.0-98.0); Mean Platelet Volume 10.1 fL (9.4-12.4); Monocytes Absolute Auto 0.9 X10*3/uL (0.1-1.2); Monocytes Percent Auto 9.3 % (2-11); Neutrophils Absolute Auto 6.7 x10*3/uL (2.0-8.3); Neutrophils Percent Auto 71.5 % (45-73); Platelet Count 315 X10*3/uL (160-400); Red Blood Count 3.72 X10*6/uL (4.60-5.80); Red Cell Distribution Width 13.8 % (11.0-16.0); White Blood Count 9.4 X10*3/uL (4.8-10.8)
== END 2021-07-04 11:32 | disposition home or self-care (01) ==
LOC: HO.LNP 11:31
PROVIDERS: Visit Provider Internal Medicine
DX: D64.9 Anemia, unspecified (principal)
CPT/HCPCS: 85025

== ENCOUNTER 2021-07-08 10:20 | Outpatient (REF) | payer MEDICARE, OTHER, SELFPAY ==
[2021-07-08 10:25] LABS: MANUAL DIFF FLAG NO
[2021-07-08 10:33] LABS: Basophils Percent Auto 0.5 % (0-2); Eosinophils Absolute Auto 0.4 X10*3/uL (0.0-0.4); Eosinophils Percent Auto 5.1 % (0-4); Hematocrit 34.4 % (42.0-52.0); Hemoglobin 11.2 g/dl (14.0-18.0); Imm Gran Abs Auto 0.06 X10*3/uL (0.00-0.03); Imm Gran Pct Auto 0.7 % (0.0-0.4); Lymphocytes Absolute Auto 1.2 X10*3/uL (1.2-4.9); Lymphocytes Percent Auto 14.4 % (20-40); Mean Corpuscular HGB Conc 32.6 g/dl (31.0-36.0); Mean Corpuscular Hemoglobin 29.3 pg (27.0-33.0); Mean Corpuscular Volume 90.1 fL (80.0-98.0); Monocytes Absolute Auto 0.7 X10*3/uL (0.1-1.2); Monocytes Percent Auto 8.5 % (2-11); Neutrophils Absolute Auto 6.1 x10*3/uL (2.0-8.3); Neutrophils Percent Auto 70.8 % (45-73); Platelet Count 335 X10*3/uL (160-400); Red Blood Count 3.82 X10*6/uL (4.60-5.80); Red Cell Distribution Width 14.4 % (11.0-16.0); White Blood Count 8.6 X10*3/uL (4.8-10.8)
== END 2021-07-08 10:21 | disposition home or self-care (01) ==
LOC: HO.LNP 10:20
PROVIDERS: PCP Internal Medicine; Visit Provider Internal Medicine
DX: Z13.89 Encounter for screening for other disorder (principal)
CPT/HCPCS: 85025

== ENCOUNTER 2021-07-11 11:54 | Outpatient (REF) | payer MEDICARE, OTHER, SELFPAY ==
[2021-07-11 11:58] LABS: MANUAL DIFF FLAG NO
[2021-07-11 12:12] LABS: Basophils Percent Auto 0.4 % (0-2); Eosinophils Absolute Auto 0.3 X10*3/uL (0.0-0.4); Hematocrit 36.1 % (42.0-52.0); Hemoglobin 11.8 g/dl (14.0-18.0); Imm Gran Abs Auto 0.05 X10*3/uL (0.00-0.03); Imm Gran Pct Auto 0.6 % (0.0-0.4); Lymphocytes Absolute Auto 1.1 X10*3/uL (1.2-4.9); Lymphocytes Percent Auto 13.5 % (20-40); Mean Corpuscular HGB Conc 32.7 g/dl (31.0-36.0); Mean Corpuscular Hemoglobin 29.7 pg (27.0-33.0); Mean Corpuscular Volume 90.9 fL (80.0-98.0); Mean Platelet Volume 10.3 fL (9.4-12.4); Monocytes Absolute Auto 0.8 X10*3/uL (0.1-1.2); Monocytes Percent Auto 10.3 % (2-11); Neutrophils Absolute Auto 5.7 x10*3/uL (2.0-8.3); Neutrophils Percent Auto 71.2 % (45-73); Platelet Count 334 X10*3/uL (160-400); Red Blood Count 3.97 X10*6/uL (4.60-5.80); Red Cell Distribution Width 14.6 % (11.0-16.0); White Blood Count 7.9 X10*3/uL (4.8-10.8)
== END 2021-07-11 11:55 | disposition home or self-care (01) ==
LOC: HO.LNP 11:54
PROVIDERS: PCP Internal Medicine; Visit Provider Internal Medicine
DX: D64.9 Anemia, unspecified (principal); K92.1 Melena; K92.2 Gastrointestinal hemorrhage, unspecified
CPT/HCPCS: 85025

== ENCOUNTER 2021-07-30 05:55 | Day surgery (SDC) | payer MEDICARE, OTHER, SELFPAY ==
[2021-07-24 15:22] VITALS: BMI 29.2
--- NOTE | 2021-07-29 10:36 | HO.ANESPROP2 ---
Documented by User: Nida Vazquez NP 07/29/21 10:41 HPI - Anesthesia Eval Consult details Narrative: 71yo M for Upper Endoscopy with antibiotics s/p AVR 2009 [facility] Active Problems Active Problems: All Active Problems (Updated 04/01/21 @ 08:29 by Lidia Nicole MD) Head and neck cancer (Acute) CAD (coronary artery disease) (Acute) PVD (peripheral vascular disease) (Acute) Hx of aortic valve replacement (Acute) Past Medical History Medical History Aortic valvular disease Arrhythmia Back pain CAD (coronary artery disease) Cancer COPD (chronic obstructive pulmonary disease) Elevated cholesterol History of chemotherapy Hx of radiation therapy Personal history of nicotine dependence PVD (peripheral vascular disease) Family History Family history of problems with anesthesia: No Surgical History Surgical History History of laryngoscopy History of surgical removal of pilonidal cyst Hx of aortic valve replacement Hx of CABG Hx of colonoscopy History of Problems with Anesthesia: No Social History Social History Alcohol intake: current Alcohol intake frequency: 0-2 drinks per day Patient Tobacco Use Status: Former Tobacco user Quit Date: 12 yrs ago Cigarette Packs Per Day: 1 Years Smoked: 45 Second Hand Smoke Exposure: No Use of substances other than those prescribed or required for medical reasons: Yes Substance Use Frequency: Occasionally Are you DNR?: No Advance Directives: No Advance Directives Information Provided: Yes Meds Allergies Allergy/AdvReac Type Severity Reaction Status Date / Time No Known Allergies Allergy Verified 07/30/21 06:07 [No Known Allergies*] Home Medications Medication Instructions Recorded Confirmed Last Taken Type aspirin 81 mg tablet 81 mg PO DAILY 12/12/19 07/24/21 07/29/21 History cholecalciferol (vitamin D3) 50 50 mcg PO DAILY 03/29/20 07/24/21 Unknown History mcg (2,000 unit) tablet (Vitamin D3) metoprolol succinate 50 mg 50 mg PO DAILY tab 06/05/20 07/24/21 07/30/21 05:30 History tablet,extended release 24 hr rosuvastatin 40 mg tablet 40 mg PO DAILY tab 06/05/20 07/24/21 Unknown History Exam Exam Date and Time: July 29, 2021 1036 Height,Weight and Vital Signs: Height 5 ft 9 in Weight 89.811 kg Pertinent Lab Results Pertinent Lab Results: Laboratory Tests 04/01/21 07/11/21 08:27 08:00 WBC 7.9 Hgb 11.8 L Hct 36.1 L Plt Count 334 Sodium 139 Potassium 5.2 H D Chloride 106 Carbon Dioxide 28 BUN 15 Creatinine 1.03 Narrative Narrative: ECHO 11/2020 Conclusions: - 1. Normal LV systolic function with impaired relaxation filling pattern? 2. Bioprosthetic aortic valve in place, not well visualized but? mean gradient within normal limits at 8 mm Hg? 3. Moderate mitral calcification ? 4. Normal RV systolic pressure ? 5. No gross pericardial effusion ?? EKG 01/2021 normal sinus rhythm with possible left atrial enlargement with left anterior fascicular block and incomplete right bundle-branch block with LVH with nonspecific ST changes Assessment and Plan Assessment Anesthesia Assessment: Chart Reviewed Final Anesthetic Review Family History of Problems with Anesthesia: No History of Problems with Anesthesia: No Documented by User: Main Azul MD 07/30/21 07:55 PMF Past Medical History Medical History Aortic valvular disease Arrhythmia Back pain CAD (coronary artery disease) Cancer COPD (chronic obstructive pulmonary disease) Elevated cholesterol History of chemotherapy Hx of radiation therapy Personal history of nicotine dependence PVD (peripheral vascular disease) Surgical History Surgical History History of laryngoscopy History of surgical removal of pilonidal cyst Hx of aortic valve replacement Hx of CABG Hx of colonoscopy Social History Social History Alcohol intake: current Alcohol intake frequency: 0-2 drinks per day Patient Tobacco Use Status: Former Tobacco user Quit Date: 12 yrs ago Cigarette Packs Per Day: 1 Years Smoked: 45 Second Hand Smoke Exposure: No Use of substances other than those prescribed or required for medical reasons: Yes Substance Use Frequency: Occasionally Are you DNR?: No Advance Directives: No Advance Directives Information Provided: Yes Meds Allergies Allergy/AdvReac Type Severity Reaction Status Date / Time No Known Allergies Allergy Verified 07/30/21 06:07 [No Known Allergies*] Home Medications Medication Instructions Recorded Confirmed Last Taken Type aspirin 81 mg tablet 81 mg PO DAILY 12/12/19 07/24/21 07/29/21 History cholecalciferol (vitamin D3) 50 50 mcg PO DAILY 03/29/20 07/24/21 Unknown History mcg (2,000 unit) tablet (Vitamin D3) metoprolol succinate 50 mg 50 mg PO DAILY tab 06/05/20 07/24/21 07/30/21 05:30 History tablet,extended release 24 hr rosuvastatin 40 mg tablet 40 mg PO DAILY tab 06/05/20 07/24/21 Unknown History Exam Airway Mallampati Class: II TM Dist: >3cm Neck ROM: Full Denture: Upper Partial: Lower Loose/Missing/Broken Teeth: Yes (Two teeth present) Assessment and Plan Assessment Anesthesia Assessment: Anesthesia Plan Discussed Final Anesthetic Review NPO: Yes ASA Class: III Final Preanesthetic Review: No Changes in Pt Med Stat, Meds/Allgs Chart Reviewed, Consent Obtained/Reviewed and Anes Risks/Benef Reviewed Patient Risk: Intermediate Procedure Risk: Low Anesthetic Plan Anesthetic Plan: MAC: Disposition: Standard PACU
[2021-07-30 06:18] VITALS: BP 166/83; PULSE 83; RESP 16; TEMP 36.2; O2SAT 96
[2021-07-30] MEDS: Ampicillin Sodium 2 GM in 0.9 % Sodium Chloride 100 ML IV (06:31)
[2021-07-30] MEDS: Lactated Ringers 1,000 ML 100 ML IVCONT (06:33)
[2021-07-30] MEDS: Gentamicin Sulfate/NaCl 80 MG/100 ML PIGGYBACK 100 MG IV (06:57)
[2021-07-30 07:58] VITALS: BP 122/57; PULSE 81; RESP 16; TEMP 36.3; O2SAT 98
--- NOTE | 2021-07-30 08:09 | PM.OP ---
Brief Operative Note Date of Service: 07/30/21 Pre-op diagnosis: Melena Post-op diagnosis: other (Duodenitis, Gastritis) Procedure: EGD with biopsies Surgeon: Jorge Farmer Anesthesia: MAC Was an [employer] Counsel[employer] used for this Procedure?: No Estimated blood loss (mL): 2.0 Pathology: other (A. Gastric antrum) Condition: stable Disposition: PACU
[2021-07-30 08:13] VITALS: BP 173/80; PULSE 76; RESP 20; TEMP 36.3; O2SAT 98
--- NOTE | 2021-07-31 11:35 | OP_ITS ---
SURGEON: Jorge Farmer MD INDICATIONS: The patient presents for evaluation of melena. Full consent was obtained from him for this, including risks of bleeding and perforation. PREOPERATIVE DIAGNOSIS: POSTOPERATIVE DIAGNOSIS: PROCEDURE PERFORMED: ESTIMATED BLOOD LOSS: COMPLICATIONS: ANESTHESIA: Monitored anesthesia care. ASSISTANTS: SPECIMENS: PROCEDURE: Esophagogastroduodenoscopy with biopsies. PREOPERATIVE DIAGNOSES: Melena and anemia. POSTOPERATIVE DIAGNOSES: Melena and anemia, duodenitis, gastritis, small hiatal hernia, rule out Helicobacter pylori. DESCRIPTION OF PROCEDURE: The patient was placed in the left lateral decubitus position. The Olympus video gastroscope was passed in the posterior oropharynx and upper esophagus under direct vision. The scope was passed slowly into the distal esophagus. The gastroesophageal junction appeared at 38 cm. There was a very minimal irregularity, but no evidence of any esophagitis nor any definitive Thapa mucosa. Biopsies were not obtained as he has been on blood thinners and has to resume those. The scope entered the stomach. There was a small hiatal hernia. The scope was advanced to pylorus and the duodenum was cannulated at the descending portion. The duodenal bulb had evidence of scarring and some changes of duodenitis with friability. There was no active ulceration. The 2nd and 3rd portions of duodenum appeared normal. The scope was withdrawn back in the stomach. The gastric antrum had areas of erythema, edema, and some scarring as well. There was good peristalsis. There was no active ulceration nor mass. Biopsies were obtained from the antrum. The scope was retroflexed visualizing the proximal stomach carefully, which appeared normal, without any sign of mass or ulceration. The scope was retroflexed visualizing the proximal stomach carefully, which appeared normal, without any sign of mass or ulceration. The scope was straightened and withdrawn back to the esophagus. The esophageal mucosa, otherwise, appeared normal. The scope was withdrawn from the patient. He tolerated the procedure well and was returned to recovery area in stable condition. IMPRESSION: 1. Duodenitis. 2. Gastritis. 3. Small hiatal hernia. 4. Rule out Helicobacter pylori. 5. Scarring in duodenal bulb and gastric antrum, consistent with probable previous more significant inflammation and/or ulcer disease. PLAN: The results of biopsy will be checked. If Helicobacter pylori is present, I would recommend treating that given the presumed GI bleeding he had earlier in the year. He was started on omeprazole and I would recommend he continue that long-term, particularly while he is on the blood thinners and continues to use some alcohol. MD GILA Butler/ACOSTA / [phone]
== END 2021-07-30 08:41 | disposition home or self-care (01) ==
PROVIDERS: PCP Internal Medicine; Visit Provider Internal Medicine
PROC: 0DJ08ZZ Inspection of Upper Intestinal Tract, Via Natural or Artificial Opening Endoscopic (ICD-10-PCS; CPT 43235; principal; 2021-07-30 07:30)
DX: K92.1 Melena (principal); Z86.010 Personal history of colon polyps; D62 Acute posthemorrhagic anemia; K29.50 Unspecified chronic gastritis without bleeding; K29.80 Duodenitis without bleeding; K44.9 Diaphragmatic hernia without obstruction or gangrene; J44.9 Chronic obstructive pulmonary disease, unspecified; E78.5 Hyperlipidemia, unspecified; I25.10 Atherosclerotic heart disease of native coronary artery without angina pectoris; Z95.1 Presence of aortocoronary bypass graft; Z95.2 Presence of prosthetic heart valve; I73.9 Peripheral vascular disease, unspecified; Z95.828 Presence of other vascular implants and grafts; Z85.21 Personal history of malignant neoplasm of larynx; Z92.21 Personal history of antineoplastic chemotherapy; Z92.3 Personal history of irradiation; Z87.891 Personal history of nicotine dependence; Z79.82 Long term (current) use of aspirin; Z79.899 Other long term (current) drug therapy
CPT/HCPCS: 43239; 88305; 88342; J0290; J1580

== ENCOUNTER → 2021-08-02 08:20 | Outpatient (BNVA) | payer MEDICARE, OTHER, SELFPAY | PROVIDERS: PCP Internal Medicine; Referring Provider Internal Medicine; Visit Provider Internal Medicine Cardiovascular Disease | DX: I25.10 Atherosclerotic heart disease of native coronary artery without angina pectoris (principal); Z95.2 Presence of prosthetic heart valve | CPT/HCPCS: 99212 ==

== ENCOUNTER 2021-08-27 10:35 | Outpatient (REF) | payer MEDICARE, OTHER, SELFPAY ==
[2021-08-27 10:39] LABS: MANUAL DIFF FLAG NO
[2021-08-27 11:44] LABS: Basophils Absolute Auto 0.1 X10*3/uL (0.0-0.2); Basophils Percent Auto 0.6 % (0-2); Eosinophils Absolute Auto 0.3 X10*3/uL (0.0-0.4); Eosinophils Percent Auto 3.4 % (0-4); Hematocrit 43.1 % (42.0-52.0); Hemoglobin 13.7 g/dl (14.0-18.0); Imm Gran Abs Auto 0.04 X10*3/uL (0.00-0.03); Imm Gran Pct Auto 0.4 % (0.0-0.4); Lymphocytes Absolute Auto 1.4 X10*3/uL (1.2-4.9); Mean Corpuscular HGB Conc 31.8 g/dl (31.0-36.0); Mean Corpuscular Hemoglobin 28.5 pg (27.0-33.0); Mean Corpuscular Volume 89.8 fL (80.0-98.0); Mean Platelet Volume 10.3 fL (9.4-12.4); Monocytes Absolute Auto 0.9 X10*3/uL (0.1-1.2); Monocytes Percent Auto 9.5 % (2-11); Neutrophils Absolute Auto 6.5 x10*3/uL (2.0-8.3); Neutrophils Percent Auto 71.1 % (45-73); Platelet Count 320 X10*3/uL (160-400); White Blood Count 9.1 X10*3/uL (4.8-10.8)
== END 2021-08-27 10:36 | disposition home or self-care (01) ==
LOC: HO.LNP 10:35
PROVIDERS: PCP Internal Medicine; Visit Provider Internal Medicine
DX: D64.9 Anemia, unspecified (principal)
CPT/HCPCS: 85025

== ENCOUNTER 2021-09-10 14:19 | Emergency (ER) | payer MEDICARE, OTHER, SELFPAY ==
--- NOTE | ~2021-09-10 | XR_ITS ---
EXAMINATION: XR CHEST CLINICAL INFORMATION: Shortness of breath. Covid positive COMPARISON: None TECHNIQUE: Frontal view of the chest was obtained. FINDINGS: Mild patchy infiltrate left lower lung near the left heart border and in the retrocardiac region. Recommend follow-up PA lateral. Right lung clear. Heart size normal with normal caliber pulmonary vessels. Sternal wires present. XR/XR chest 1V IMPRESSION: Query left basilar infiltrate for which follow-up advised.
[2021-09-10 14:26] VITALS: BMI 27.2
--- NOTE | 2021-09-10 14:26 | ECG_ITS ---
Test Reason : SHORTNESS OF BREATH Blood Pressure : / mmHG Vent. Rate : 094 BPM Atrial Rate : 094 BPM P-R Int : 110 ms QRS Dur : 104 ms QT Int : 372 ms P-R-T Axes : 077 -63 088 degrees QTc Int : 465 ms Sinus rhythm with short SD Possible Left atrial enlargement Left anterior fascicular block Left ventricular hypertrophy with repolarization abnormality ( R in aVL , Jaun product , Romhilt-Velasquez ) Abnormal ECG When compared with ECG of 16-DEC-2019 07:10, Left anterior fascicular block is now Present Referred By: Generic ED Physician Electronically Signed By:Malik Winn
[2021-09-10 14:54] LABS: COVID-19 Test Positive (Negative); IDNOW Serial# 9DB6401D
[2021-09-10 16:09] VITALS: BP 166/138; PULSE 92; RESP 16; TEMP 36.3; O2SAT 96; BMI 27.2
[2021-09-10 16:12] VITALS: BP 152/70
--- NOTE | 2021-09-10 17:30 | ED.URI ---
HPI - URI/Sore Throat General Chief Complaint: Upper Respiratory Symptoms Stated Complaint: sob, covid symptoms Time Seen by Provider: 09/10/21 16:58 Source: patient Mode of arrival: ambulatory Limitations: no limitations History of Present Illness HPI Narrative: 71-year-old male with a history of coronary artery disease on aspirin only, peripheral vascular disease, COPD, aortic valve replacement, high cholesterol, history of head and neck cancer status post treatment here with complaints of cough, sore throat, congestion, poor appetite, headache for 3 days. Patient to go home COVID testing was positive. He called his primary care doctor for further instruction was referred into the emergency department for oral COVID treatment. Patient denies any shortness of breath, chest pain, fever. Has had 3 COVID vaccine Related Data Home Medications Medication Instructions Recorded Confirmed aspirin 81 mg tablet 81 mg PO DAILY 12/12/19 08/02/21 cholecalciferol (vitamin D3) 50 50 mcg PO DAILY 03/29/20 08/02/21 mcg (2,000 unit) tablet (Vitamin D3) metoprolol succinate 50 mg 50 mg PO DAILY 06/05/20 08/02/21 tablet,extended release 24 hr rosuvastatin 40 mg tablet 40 mg PO DAILY 06/05/20 08/02/21 omeprazole 40 mg capsule,delayed 40 mg PO QAM 08/02/21 08/02/21 release Previous Rx's Medication Instructions Recorded ezetimibe 10 mg tablet 10 mg PO DAILY #90 tabs 03/11/21 cilostazol 50 mg tablet 50 mg PO BID #60 tabs 08/15/21 doxycycline monohydrate 100 mg 100 mg PO BID #14 caps 09/10/21 capsule Allergies Allergy/AdvReac Type Severity Reaction Status Date / Time No Known Allergies Allergy Verified 07/30/21 06:07 [No Known Allergies*] Review of Systems Review of Systems: Yes all other systems are reviewed and are negative Constitutional: Constitutional: Reports no additional constitutional complaints, Denies body ache(s), Denies chills, Denies fever(s), Reports headache(s), Reports poor appetite and Denies weakness Eyes: Eyes: Reports no additional eye complaints and Denies change in vision ENT: Reports system reviewed and no additional complaints, except as documented, Denies dizziness, Reports headache(s), Denies nasal congestion, Reports nasal discharge, Denies neck pain and Reports sore throat Cardiovascular: Cardiovascular: Reports no additional cardiovascular complaints, Denies chest pain, Denies leg edema and Denies dyspnea Respiratory: Respiratory: Reports no additional respiratory complaints, Reports cough and Denies dyspnea Gastrointestinal: Gastrointestinal: Reports no additional gastrointestinal complaints, Denies abdominal pain, Denies diarrhea, Denies nausea and Denies vomiting Genitourinary: Genitourinary: Denies urinary incontinence Musculoskeletal: Musculoskeletal: Reports no additional musculoskeletal complaints, Denies back pain, Denies arthralgias, Denies joint swelling, Denies neck pain, Denies numbness and Denies tingling Integumentary/Breasts: Skin/Breast: Reports system reviewed and no additional complaints, except as docu and Denies rash Neurologic: Reports system reviewed and no additional complaints, except as documented, Denies Abnormal speech present, Denies dizziness, Reports headache(s), Denies numbness, Denies tingling and Denies weakness PMFSH Past Medical History Attestation statement: The following information was validated with the patient. Source: old records reviewed and nursing notes reviewed Medical History Aortic valvular disease Arrhythmia Back pain CAD (coronary artery disease) Cancer COPD (chronic obstructive pulmonary disease) Elevated cholesterol History of chemotherapy Hx of radiation therapy Personal history of nicotine dependence PVD (peripheral vascular disease) Surgical History History of laryngoscopy History of surgical removal of pilonidal cyst Hx of aortic valve replacement Hx of CABG Hx of colonoscopy Social History Social History Alcohol intake: current Alcohol intake frequency: 0-2 drinks per day Patient Tobacco Use Status: Former Tobacco user Quit Date: 12 yrs ago Cigarette Packs Per Day: 1 Years Smoked: 45 Second Hand Smoke Exposure: No Advance Directives: No Advance Directives Information Provided: No Physical Exam Vital Signs: Vital Signs: Last Vital Signs Temp 98.1 F 09/10/21 17:36 Pulse 95 09/10/21 17:36 Resp 18 09/10/21 17:36 BP 134/63 09/10/21 17:36 Pulse Ox 96 09/10/21 17:36 O2 Del Method 09/10/21 17:36 BMI result Body Mass Index 27.2 Const: General: cooperative, healthy appearing, comfortable and no acute distress Orientation/consciousness: patient oriented x3 Limitations: no limitations HEENT: Head: Yes normal to inspection Ears: hearing grossly normal bilaterally General nose exam: Normal external nose present Face and sinus: Yes normal facial exam Mouth: Normal oral and palatal mucosa present Throat: Yes posterior oropharynx normal Eyes: General: appearance normal, both eyes and all related structures Pupils: Equal, round and reactive pupils present Neck: Neck: Yes normal visual inspection Chest: Chest palpation & inspection: normal inspection of the chest Resp: Effort & Inspection: normal respiratory effort Auscultation: clear to auscultation bilaterally Cardio: Rate: regular rate Rhythm: regular rhythm Peripheral pulses: Peripheral pulses 2+ throughout GI: Inspection: Yes normal to inspection Palpation (GI): Soft to palpation and nontender Auscultation: normal bowel sounds Back/Spine/Pelvis: Thoracic/Lumbar Spine: thoracic and lumbar spine normal to inspection Skin: General skin exam: no rashes or lesions noted Neuro: General: patient oriented x3, no focal motor deficits and normal sensation to monofilament Cranial nerves: Yes Equal, round and reactive pupils present Cognition (Neuro): normal cognition Speech: No Abnormal speech present Gait exam (Neuro): Normal gait present Motor exam (neuro): 5/5 motor strength present throughout Extrem: General: Yes normal to inspection, Yes no pedal edema and Yes no calf tenderness Course Course Course Narrative: Chest x-ray shows left lower lobe pneumonia. Patient is afebrile. He has no shortness of breath or chest pain. His vitals are stable including his oxygen saturation. Overall is nontoxic appearing will initiate course of antibiotics. EKG shows no ischemic changes. Rapid COVID screen is positive. Patient is interested in receiving the oral COVID medications. We discussed available COVID-19 treatment options which include oral paxlovid and monoclonal antibodies.. Patient is aware there is an emergency use authorization only for these medications and they are not FDA approved. He would like to be started on Paxlovid. He has labs from August 27 that showed normal renal function. He is on a statin. I recommended he hold this for the treatment course with Paxlovid. He is no longer taking anticoagulation. He can continue his other home medications. Reviewed [facility] COVID-19 interaction fact checker for paxlovid We discussed side effects of the medication. I printed out the fact sheet for patient's and gave it to him. A referral was sent to [facility]. Reviewed worrisome signs and symptoms of when to return to the emergency department. Comfortable discharge home. MDM - URI/Sore Throat MDM Narrative Medical decision making narrative: 71-year-old male who is currently COVID positive on day 3 of illness with symptoms of sore throat, nasal congestion, cough, poor appetite and headache. Chest x-ray and EKG as well as COVID screen ordered from triage. Patient has no complaints of shortness of breath or chest pain. -low concern for PE with no clinical findings concerning for DVT, no shortness of breath, chest pain. No tachypnea, hypoxia or tachycardia. Medical Records Attestation: I reviewed the patient's medical records. Lab Data Attestation: I reviewed the patient's lab results. Labs: Lab Results 09/10/21 Range/Units 14:42 COVID-19 ([facility]) Positive A (Negative) COVID-19 Clin Com See Note Imaging Data Chest x-ray: Attestation: I personally reviewed and interpreted this imaging study as follows: Radiologist's impression: Launch?Image [address] [address] XRay Report Signed Patient: Daniel Whitaker MR#: [id number] : 1950 Acct:[id number] Age/Sex: 71 / M ADM Date: 09/10/21 Loc: .ED Attending Dr: Ordering Physician: Generic ED Physician Date of Service: 09/10/21 Procedure(s): XR chest 1V Accession Number(s): [id number] cc: Generic ED Physician~ EXAMINATION: XR CHEST CLINICAL INFORMATION: Shortness of breath. Covid positive COMPARISON: None TECHNIQUE: Frontal view of the chest was obtained. FINDINGS: Mild patchy infiltrate left lower lung near the left heart border and in the retrocardiac region. Recommend follow-up PA lateral. Right lung clear. Heart size normal with normal caliber pulmonary vessels. Sternal wires present. XR/XR chest 1V IMPRESSION: Query left basilar infiltrate for which follow-up advised. ? ECG Data Attestation: I personally reviewed and interpreted this ECG as follows: ECG interpretation date: 09/10/21 ECG interpretation time: 14:30 Interpretation: Normal sinus rhythm with a rate 94, normal W[place], normal QRS, normal QT Discharge Plan Discharge Clinical Impression: Pneumonia, COVID-19 Patient Disposition: Home, Self-Care Instructions: Pneumonia (ED), COVID-19 (Coronavirus Disease 2019) (ED) Additional Instructions: We discussed EUA for treatment with Paxlovid Hold your rosuvastatin while taking the Paxlovid. Take it with food. I sent a referral to [facility] who will contact you to receive the Paxlovid. Take this medication with food. Start the antibiotic today. Take this with food. Alternate Motrin and Tylenol if able as needed for pain or fever Return to the emergency department for increasing shortness of breath, chest pain, fever which is not respond to Motrin or Tylenol, weakness Continue your quarantine Prescriptions: New doxycycline monohydrate 100 mg capsule 100 mg PO BID Qty: 14 0RF No Action ezetimibe 10 mg tablet 10 mg PO DAILY Qty: 90 3RF cilostazol 50 mg tablet 50 mg PO BID Qty: 60 5RF aspirin 81 mg Tablet 81 mg PO DAILY metoprolol succinate 50 mg tablet extended release 24 hr 50 mg PO DAILY rosuvastatin 40 mg tablet 40 mg PO DAILY cholecalciferol (vitamin D3) [Vitamin D3] 50 mcg (2,000 unit) Tablet 50 mcg PO DAILY omeprazole 40 mg capsule,delayed release(DR/EC) 40 mg PO QAM Referrals: Justice Rubalcava MD [Primary Care Provider] - 1 week (as needed) Interventions: ED Discharge Assessment Last Done: 09/10/21 17:48 Discharge Date/Time: 09/10/21 17:50
[2021-09-10 17:36] VITALS: BP 134/63; PULSE 95; RESP 18; TEMP 36.7; O2SAT 96
== END 2021-09-10 17:50 | disposition home or self-care (01) ==
PROVIDERS: Emergency Provider Emergency Medicine; PCP Internal Medicine
DX: U07.1 COVID-19 (principal); J12.82 Pneumonia due to coronavirus disease 2019; R06.02 Shortness of breath; I25.10 Atherosclerotic heart disease of native coronary artery without angina pectoris; Z79.899 Other long term (current) drug therapy; Z87.891 Personal history of nicotine dependence
CPT/HCPCS: 71045; 87635; 93005; 99282; 99283

== ENCOUNTER 2021-09-24 06:52 | Outpatient (REF) | payer MEDICARE, OTHER, SELFPAY ==
--- NOTE | ~2021-09-24 | XR_ITS ---
EXAMINATION: XR CHEST CLINICAL INFORMATION: Covid 19 COMPARISON: Chest 09/10/2021 TECHNIQUE: 2 views of the chest were obtained. FINDINGS: The lungs are hyperinflated but clear of acute pneumonic process. A 9 mm nodule right lower lobe similar previous exam 09/10/2021. The heart size and pulmonary vascularity is normal. There are median sternotomy sutures from previous intervention. There is moderate spondylosis throughout mid and lower dorsal spine. There are median sternotomy sutures from previous intervention. The soft tissues are normal. XR/XR chest 2V IMPRESSION: Hyperinflated lungs without acute process. Stable 9 mm nodule right lower lobe.
== END 2021-09-24 06:53 | disposition home or self-care (01) ==
LOC: HO.XRAY 06:52
PROVIDERS: PCP Internal Medicine; Visit Provider Internal Medicine
DX: U07.1 COVID-19 (principal)
CPT/HCPCS: 71046

== ENCOUNTER 2021-10-09 10:51 | Outpatient (REF) | payer MEDICARE, OTHER, SELFPAY ==
--- NOTE | ~2021-10-09 | US_ITS ---
EXAMINATION: US EXTRACRANIAL CAROTID DUPLEX, BILATERAL CLINICAL INFORMATION: This is a 71-year-old male with atherosclerosis seen within the neck CT scan. COMPARISON: Comparison is made to a previous carotid duplex ultrasound dated 05/10/2014 which demonstrated bilateral 50-79% internal carotid artery stenoses. TECHNIQUE: Real-time ultrasound and Doppler techniques (integrating B-mode 2-D vascular images, Doppler spectral analysis and color-flow Doppler imaging) were utilized to interrogate the extracranial carotid arteries, the vertebral arteries and proximal subclavian arteries bilaterally. The degree of stenosis is determined by criteria similar to NASCET. FINDINGS: Right Side: 1. There is moderate atherosclerotic plaque seen in the bifurcation/proximal ICA region. 2. The common carotid artery PSV proximally is 84 cm/s and distally 69 cm/s. 3. The proximal internal carotid artery velocities are 264 cm/s systolic and 63 cm/s diastolic. 4. The proximal external carotid artery PSV is 278 cm/s. There is a moderate stenosis involving the external carotid artery. 5. The vertebral artery shows antegrade flow. 6. The subclavian artery waveforms are normal. Left Side: 1. There is moderate atherosclerotic plaque seen in the bifurcation/proximal ICA region. 2. The common carotid artery PSV proximally is 82 cm/s and distally 70 cm/s. 3. The proximal internal carotid artery velocities are 419 cm/s systolic and 131 cm/s diastolic. 4. The proximal external carotid artery PSV is 271 cm/s. There is a moderate stenosis involving the external carotid artery. 5. The vertebral artery shows antegrade flow. 6. The subclavian artery waveforms are normal. US/US carotid duplex BI IMPRESSION: 1. RIGHT: Moderate, hemodynamically significant stenosis of the proximal right internal carotid artery corresponding to a 50-79% stenosis by velocity criteria.There is no change in the category severity of disease when compared to the previous study dated 05/10/2014. 2. LEFT: Severe, hemodynamically significant stenosis of the proximal left internal carotid artery corresponding to an 80-99% stenosis by velocity criteria. There has been progression of disease when compared to the previous examination dated 05/10/2014. 3. Incidental note is made of an arrhythmia during the duplex ultrasound.
== END 2021-10-09 10:52 | disposition home or self-care (01) ==
LOC: HO.US 10:51
PROVIDERS: PCP Internal Medicine; Visit Provider Internal Medicine Medical Oncology
DX: I65.23 Occlusion and stenosis of bilateral carotid arteries (principal)
CPT/HCPCS: 93880

== ENCOUNTER 2021-10-11 08:46 | Outpatient (REF) | payer MEDICARE, OTHER, SELFPAY ==
--- NOTE | ~2021-10-11 | CT_ITS ---
EXAMINATION: CT CHEST WITHOUT CONTRAST CLINICAL INFORMATION: Follow-up pulmonary nodule COMPARISON: Previous chest CT January 2020 TECHNIQUE: Multidetector volumetric CT imaging of the chest was done. Axial MIP volume rendering provided. Sagittal and coronal reformatted images were obtained. This CT examination was performed using dose optimization techniques as appropriate, variously including the following: *Automated exposure control *Adjustment of mA and/or kV according to patient size (this includes techniques or standardized protocols for targeted exams where dose is matched to indication/reason for exam; i.e. extremities or head) *Use of iterative reconstruction technique DLP: 194 mGy-cm FINDINGS: LUNGS: There is a 5 mm peripheral calcified right lower lobe nodule axial image 291 series 7 this is stable from previous chest CT January 2020. There are increased peripheral interstitial markings questionable for mild interstitial lung disease. This is similar to previous exam as well. The lungs are otherwise clear. MEDIASTINUM: The heart size is normal. There are post-CABG changes and prosthetic aortic valve. There is no pericardial effusion. The thoracic aorta in caliber. There are small mediastinal lymph nodes. No enlarged nodes are seen PLEURA: There is no pleural effusion. No pleural mass or thickening. AXILLA: No lymphadenopathy. UPPER ABDOMEN: Unremarkable. OSSEOUS STRUCTURES: There are degenerative changes of the spine. CT/CT chest wo con IMPRESSION: Stable calcified right lower lobe nodule. Question mild interstitial lung disease. Fleischner guidelines were followed.
== END 2021-10-11 08:47 | disposition home or self-care (01) ==
LOC: HO.CT 08:46
PROVIDERS: PCP Internal Medicine; Visit Provider Internal Medicine
DX: R91.1 Solitary pulmonary nodule (principal)
CPT/HCPCS: 71250

== ENCOUNTER → 2021-11-08 08:16 | Outpatient (REF) | payer MEDICARE, OTHER, SELFPAY ==
--- NOTE | 2021-11-08 08:19 | CA_ITS ---
Transthoracic Echocardiogram Patient (Last, First, Middle): Daniel Whitaker F Gender: Male Date of : 1950 Age: 71 Procedure Date: 11/08/2021 Procedure Type: Transthoracic Echocardiogram Location: OP Height: 177.8 cm Weight: 88.45 kg BSA: 2.06 m2 Heart Rate: bpm BP: 158 / 80 mmHg Hearse Driver: TO/KS Referring MD: Maksim Claros MD Matte Cutter: Maksim Claros MD Symptoms: Z95.2 - Presence of prosthetic heart valve Study Quality: Technically Difficult/Contrast ECG Rhythm: Sinus Conclusions: - 1. Normal LV systolic function with LVEF of 55-60% with pseudonormal filling pattern 2. Bioprosthetic aortic valve not well evaluated on this study due to limited study 3. Moderate mitral annular calcification Findings Procedure Information Contrast agent, definity, is being given per protocol without apparent complications. Left Ventricle The left ventricular systolic function is normal. The visually estimated ejection fraction is between 55-60%. Regional wall motion abnormalities can not be excluded due to suboptimal endocardial definition. Spectral Doppler is indicative of a pseudonormal filling pattern. Right Ventricle The right ventricle was not well visualized. Atria The left atrium was not well visualized. There is lipomatous hypertrophy of the interatrial septum. There is no evidence of interatrial shunt. The right atrium was not well visualized. Aortic Valve The aortic valve was not well visualized. the valve is well seated without abnormal rocking motion. Significant aortic regurgitation noted. Gradient could not be accurately obtain on this study. Consider CHENTE Mitral Valve The mitral valve was not well visualized. There is moderate posterior mitral leaflet thickening. There is moderate mitral annular calcification. Pulmonic Valve The pulmonic valve was not well visualized. Tricuspid Valve The tricuspid valve was not well visualized. Tricuspid regurgitation envelope is inadequate for calculation of right ventricular systolic pressure. Great Vessels The aorta was not well visualized. The pulmonary artery was not well visualized. Venous The inferior vena cava is normal in size and collapses greater than 50% with inspiration. Pericardium/Pleural The pericardium was not well visualized. Prior Study Comparison comparison is difficult due to suboptimal study and stenosis of bioprosthetic aortic valve cannot be ruled out Recommendations, Care & Conclusions Consider a CHENTE if clinically appropriate. Measurements 2D Linear Measurements LVOT Diam: 2.30 3.0+(-)1.3 cm 2D Systolic Function EF 4C: 48.50 >55% EF 2C: 65.20 >55% EF BiP: 59.60 >55% Mitral Valve MV Pk E: 1.04 MV PK A: 0.84 MV Decel Time: 188.00 E/A: 1.20 E'Lateral: 8.16 E'Medial: 7.72 E/E' Med: 13.50 E/E' Lat: 12.70 PHT: 55.00 MVA PHT: 4.00 Decel [place]: 5.53 Aortic Valve AoV Pk Pilo: 3.73 AoV Mn Pil[place]: 2.83 AoV VTI: 0.68 AoV Pk Grad: 56.00 Aov Mn Grad: 36.00 ALEXANDRA Cont.VTI: 0.73 LVOT LVOT Pk Pilo: 0.74 LVOT Mn Pilo: 0.49 LVOT VTI: 0.12 LVOT Pk Grad: 2.00 LVOT Mn Grad: 1.00 LVOT Diam: 2.30 LVOT Area: 4.15 Diastolic Function MV Pk E: 1.04 MV Pk A: 0.84 E/A: 1.20 E'Medial: 7.72 E/E' Med: 13.50 E' Laterial: 8.16 E/E' Lat: 12.70 Right Ventricle TAPSE (mm): 21.20 TVS' Pilo: 9.14 Tricuspid Valve RA Press: 3.00 Updated in Other Vendor System with Status of Final Maksim Claros MD electronically signed on 11/11/2021 12:10:06 PM with status of Final
== END ==
LOC: HO.CARD 08:16
PROVIDERS: PCP Internal Medicine; Visit Provider Internal Medicine Cardiovascular Disease
DX: Z95.2 Presence of prosthetic heart valve (principal)
CPT/HCPCS: 93306; Q9957

== ENCOUNTER → 2021-11-25 08:47 | Outpatient (BNVA) | payer MEDICARE, OTHER, SELFPAY | PROVIDERS: PCP Internal Medicine; Referring Provider Internal Medicine; Visit Provider Internal Medicine Cardiovascular Disease | DX: I25.10 Atherosclerotic heart disease of native coronary artery without angina pectoris (principal); Z95.2 Presence of prosthetic heart valve; Z79.82 Long term (current) use of aspirin; Z79.899 Other long term (current) drug therapy | CPT/HCPCS: 93005; 99212 ==

== ENCOUNTER 2021-12-26 10:42 | Outpatient (REF) | payer MEDICARE, OTHER, SELFPAY ==
[2021-12-26 10:46] LABS: MANUAL DIFF FLAG NO
[2021-12-26 11:53] LABS: Basophils Absolute Auto 0.1 X10*3/uL (0.0-0.2); Basophils Percent Auto 0.6 % (0-2); Eosinophils Absolute Auto 0.3 X10*3/uL (0.0-0.4); Eosinophils Percent Auto 3.6 % (0-4); Hematocrit 43.8 % (42.0-52.0); Hemoglobin 14.1 g/dl (14.0-18.0); Imm Gran Abs Auto 0.03 X10*3/uL (0.00-0.03); Imm Gran Pct Auto 0.4 % (0.0-0.4); Lymphocytes Percent Auto 12.2 % (20-40); Mean Corpuscular HGB Conc 32.2 g/dl (31.0-36.0); Mean Corpuscular Hemoglobin 27.5 pg (27.0-33.0); Mean Corpuscular Volume 85.4 fL (80.0-98.0); Mean Platelet Volume 10.2 fL (9.4-12.4); Monocytes Absolute Auto 0.6 X10*3/uL (0.1-1.2); Monocytes Percent Auto 7.6 % (2-11); Neutrophils Absolute Auto 6.3 x10*3/uL (2.0-8.3); Neutrophils Percent Auto 75.6 % (45-73); Platelet Count 278 X10*3/uL (160-400); Red Blood Count 5.13 X10*6/uL (4.60-5.80); White Blood Count 8.4 X10*3/uL (4.8-10.8)
[2021-12-26 12:00] LABS: Alanine Aminotransferase 20 U/L (0-40); Albumin Level 4.8 g/dL (3.5-5.0); Alkaline Phosphatase 38 U/L (39-117); Anion Gap 15 (12-20); Aspartate Amino Transferase 25 U/L (5-37); Blood Urea Nitrogen 13 mg/dL (9-16); Calcium 9.6 mg/dL (8.4-10.2); Carbon Dioxide 28 mmol/L (22-29); Chloride 102 mmol/L (96-108); Cholesterol 140 mg/dL; Estimated Glomerular Filt Rate > 60; Glucose Fasting 106 mg/dL (60-99); HDL Cholesterol 57 mg/dL; LDL Cholesterol Calculated 59 mg/dl; Potassium 4.6 mmol/L (3.3-5.1); Sodium 140 mmol/L (135-145); Total Protein 7.4 g/dL (6.5-8.0); Triglycerides 124 mg/dL
[2021-12-26 12:23] LABS: Creatinine Urine 67.07 mg/dL; Microalbum/Creatinine Ratio Ur 119.2 ug/mg cr
[2021-12-26 12:25] LABS: Estimated Average Glucose 126 mg/dL; Hemoglobin A1C 151.3452 umol/L; PSA,Total (Free>4and<10) 0.62 ng/mL (0.00-4.00); TSH reflex Free T4 4.29 uIU/mL (0.32-4.0)
[2021-12-26 13:05] LABS: Free T4 (Free Thyroxine) 0.86 ng/dL (0.71-1.85)
[2021-12-26 13:12] LABS: Appearance Urine Clear; Color Urine Yellow; Glucose Urine UA Negative (Negative); Leukocyte Esterase Urine Negative (Negative); Nitrite Urine Negative (Negative); PH 5.5 (5.0-9.0); Urine Blood Negative (Negative); Urine Ketones Negative (Negative); Urine Protein Trace mg/dL (Neg-Trace)
[2021-12-26 13:16] LABS: Bacteria Urine None Seen (None Seen); Hyaline Casts Urine 0-2 /LPF (0-2); Squamous Epithelial Cell Urine 0-2 /HPF (0-2); WBC Urine 0-5 /HPF (0-5)
== END 2021-12-26 10:43 | disposition home or self-care (01) ==
LOC: HO.LNP 10:42
PROVIDERS: Visit Provider Internal Medicine
DX: E11.40 Type 2 diabetes mellitus with diabetic neuropathy, unspecified (principal); E78.00 Pure hypercholesterolemia, unspecified; I10 Essential (primary) hypertension; E07.9 Disorder of thyroid, unspecified
CPT/HCPCS: 80053; 80061; 81001; 82043; 83036; 84153; 84439; 84443; 85025

== ENCOUNTER 2022-01-02 08:25 | Day surgery (SDC) | payer MEDICARE, OTHER, SELFPAY ==
[2021-12-27 10:28] VITALS: BMI 27.1
--- NOTE | 2022-01-01 10:35 | HO.ANESPROP2 ---
Documented by User: Nida Vazquez NP 01/01/22 12:22 HPI - Anesthesia Eval Consult details Narrative: 71yo M for Transesophageal Echocardiogram s/p AVR +Carotid stenosis, ? requiring surgical repair. VM left for patient requesting more info Daily ETOH PMFSH Active Problems Active Problems: All Active Problems (Updated 12/27/21 @ 10:23 by Mansi Mojica RN) Head and neck cancer (Acute) CAD (coronary artery disease) (Acute) COVID-19 (Acute) PVD (peripheral vascular disease) (Acute) Hx of aortic valve replacement (Acute) Past Medical History Medical History Aortic valvular disease Arrhythmia Back pain CAD (coronary artery disease) Cancer COPD (chronic obstructive pulmonary disease) COVID-19 Elevated cholesterol History of skin cancer Personal history of nicotine dependence PVD (peripheral vascular disease) Family History Family history of problems with anesthesia: No Surgical History Surgical History History of endarterectomy (~2017) History of esophagogastroduodenoscopy (EGD) History of laryngoscopy History of surgical removal of pilonidal cyst Hx of aortic valve replacement Hx of CABG Hx of colonoscopy History of Problems with Anesthesia: No Social History Social History Household Members: Spouse Housing: House Alcohol intake: current Alcohol intake frequency: 0-2 drinks per day Patient Tobacco Use Status: Former Tobacco user Quit Date: 11 yr ago Cigarette Packs Per Day: 1 Years Smoked: 45 Second Hand Smoke Exposure: No Use of substances other than those prescribed or required for medical reasons: Yes Substance Use Type: Marijuana Substance Use Frequency: Daily Advance Directives: No Advance Directives Information Provided: Yes service: Yes Current occupational status: retired Meds Allergies Allergy/AdvReac Type Severity Reaction Status Date / Time No Known Allergies Allergy Verified 01/02/22 08:47 [No Known Allergies*] Home Medications Medication Instructions Recorded Confirmed Last Taken Type aspirin 81 mg tablet 81 mg PO DAILY 12/12/19 12/27/21 01/01/22 History cholecalciferol (vitamin D3) 50 50 mcg PO DAILY 03/29/20 12/27/21 Unknown History mcg (2,000 unit) tablet (Vitamin D3) metoprolol succinate 50 mg 50 mg PO DAILY 06/05/20 12/27/21 01/02/22 07:30 History tablet,extended release 24 hr rosuvastatin 40 mg tablet 40 mg PO DAILY 06/05/20 12/27/21 Unknown History omeprazole 40 mg capsule,delayed 40 mg PO QAM 08/02/21 12/27/21 01/02/22 07:30 History release Exam Exam Date and Time: January 01, 2022 1035 Height,Weight and Vital Signs: Height 5 ft 10 in Weight 86 kg Pertinent Lab Results Pertinent Lab Results: Laboratory Tests 12/26/21 12/26/21 08:00 08:00 WBC 8.4 Hgb 14.1 Hct 43.8 Plt Count 278 Sodium 140 Potassium 4.6 Chloride 102 Carbon Dioxide 28 BUN 13 Creatinine 0.91 Narrative Narrative: ECHO 11/2021 Conclusions: - 1.? Normal LV systolic function with LVEF of 55-60% with ? ? ? pseudonormal filling pattern ? 2.? Bioprosthetic aortic valve not well evaluated on this study? due to limited study ? 3.? Moderate mitral? annular calcification? EKG 11/2021 normal sinus rhythm short CO with left axis deviation and left ventricular hypertrophy with repolarization Assessment and Plan Assessment Anesthesia Assessment: Chart Reviewed Final Anesthetic Review Family History of Problems with Anesthesia: No History of Problems with Anesthesia: No Documented by User: Manuel Perez MD 01/02/22 09:35 [facility] Past Medical History Medical History Aortic valvular disease Arrhythmia Back pain CAD (coronary artery disease) Cancer COPD (chronic obstructive pulmonary disease) COVID-19 Elevated cholesterol History of skin cancer Personal history of nicotine dependence PVD (peripheral vascular disease) Surgical History Surgical History History of endarterectomy (~2017) History of esophagogastroduodenoscopy (EGD) History of laryngoscopy History of surgical removal of pilonidal cyst Hx of aortic valve replacement Hx of CABG Hx of colonoscopy Social History Social History Household Members: Spouse Housing: House Alcohol intake: current Alcohol intake frequency: 0-2 drinks per day Patient Tobacco Use Status: Former Tobacco user Quit Date: 11 yr ago Cigarette Packs Per Day: 1 Years Smoked: 45 Second Hand Smoke Exposure: No Use of substances other than those prescribed or required for medical reasons: Yes Substance Use Type: Marijuana Substance Use Frequency: Daily Advance Directives: No Advance Directives Information Provided: Yes service: Yes Current occupational status: retired [employer] Allergies Allergy/AdvReac Type Severity Reaction Status Date / Time No Known Allergies Allergy Verified 01/02/22 08:47 [No Known Allergies*] Home Medications Medication Instructions Recorded Confirmed Last Taken Type aspirin 81 mg tablet 81 mg PO DAILY 12/12/19 12/27/21 01/01/22 History cholecalciferol (vitamin D3) 50 50 mcg PO DAILY 03/29/20 12/27/21 Unknown History mcg (2,000 unit) tablet (Vitamin D3) metoprolol succinate 50 mg 50 mg PO DAILY 06/05/20 12/27/21 01/02/22 07:30 History tablet,extended release 24 hr rosuvastatin 40 mg tablet 40 mg PO DAILY 06/05/20 12/27/21 Unknown History omeprazole 40 mg capsule,delayed 40 mg PO QAM 08/02/21 12/27/21 01/02/22 07:30 History release Exam Airway Mallampati Class: II TM Dist: >3cm Neck ROM: Full Loose/Missing/Broken Teeth: Yes (missing all top teeth, 2 teeth on bottom right and 2 on bottom lleft all chipped and cracked) Heart: [id number] Lungs: cta b/l Assessment and Plan Assessment Anesthesia Assessment: Anesthesia Plan Discussed Final Anesthetic Review NPO: Yes ASA Class: III Final Preanesthetic Review: No Changes in Pt Med Stat, Meds/Allgs Chart Reviewed, Consent Obtained/Reviewed and Anes Risks/Benef Reviewed Patient Risk: Intermediate Procedure Risk: Intermediate Assessment/Block/Sedation in SS: Assess/Block/Sedation-SS Anesthetic Plan Anesthetic Plan: MAC: and Agree w/ Assess. and Plan Disposition: Standard PACU
[2022-01-02 08:59] VITALS: BP 168/79; PULSE 81; RESP 18; TEMP 36.5; O2SAT 95
[2022-01-02] MEDS: Lactated Ringers 1,000 ML 100 ML IVCONT (09:06)
--- NOTE | 2022-01-02 09:12 | CA_ITS ---
Transesophageal Echocardiogram Patient (Last, First, Middle): Daniel Whitaker F Gender: Male Date of : 1950 Age: 71 Procedure Date: 01/02/2022 Procedure Type: Transesophageal Echocardiogram Location: OP Height: 177.8 cm Weight: 85.73 kg BSA: 2.04 m2 Heart Rate: 88 bpm Airplane Electrician: FAVIOLA/ROLAND Referring MD: Maksim Claros MD Grocery Buyer: Maksim Claros MD Symptoms: Prosthetic valve dysfunction Conclusion: ??? 1. 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 Normal LV systolic function with severe left ventricular hypertrophy 3. Mild mitral regurgitation 4. No intracardiac shunting 5. No intracardiac masses or vegetations 6. Severe atherosclerotic changes noted in descending thoracic aorta 7. No gross pericardial effusion Findings Procedure Information Consent was obtained prior to the procedure. Pre CHENTE oral cavity was checked and revealed no overcrowding. The adult 3D probe was passed with no difficulty. This was a technically good study. Left Ventricle Normal left ventricular size and systolic function. There is severely increased left ventricular wall thickness. The visually estimated ejection fraction is between 60-65%. Elevated filling pressures. Right Ventricle Normal right ventricular cavity size and systolic function. Atria The left atrium is mildly dilated. There is lipomatous hypertrophy of the interatrial septum. There is a mobile atrial septum noted. The left atrial appendage is normal in size and flow. There is no evidence of a thrombus in the left atrial appendage. There is no evidence of interatrial shunt. There is no evidence of a patent foramen ovale. There is no evidence of thrombus or mass in the left atrium. The left upper, right upper and right lower pulmonary vein drain normally into the left atrium. The right atrium is normal in size. There is no evidence of thrombus or mass in the right atrium. The IVC and SVC drain normally into the right atrium. Aortic Valve A bioprosthetic aortic valve is present. The prosthetic aortic valve appears to be functioning abnormally. The aortic valve was not well visualized. The mean gradient is 70 mmHg. There is no aortic valve regurgitation. From transgastric view the images obtained showed markedly elevated velocities consistent with stenosis of severe range. the valve is well seated. There is no abnormal rocking motion. The leaflets were difficult to see due to artifact from the struts but there is definitely significantly reduced excursion of the non coronary cusp as well as the right coronary cusp. The significant flow acceleration consistent with aortic stenosis. Mitral Valve There is mild anterior and posterior mitral leaflet thickening. The anterior mitral leaflet has restricted mobility. There is mild mitral valve regurgitation. There is no mitral valve stenosis. Pulmonic Valve The pulmonic valve is likely normal. There is mild pulmonic valve regurgitation. Tricuspid Valve Normal tricuspid valve structure. There is mild tricuspid valve regurgitation. Great Vessels All visible segments of the aorta are normal in size. The visualized portions of the pulmonary artery and branches are normal. Significant atherosclerotic changes noted in the descending thoracic as well as the arch Venous The inferior vena cava is normal in size and collapses greater than 50% with inspiration. Pericardium/Pleural There is no evidence of pericardial effusion. Measurements 2D Linear Measurements LVOT Diam: 2.30 3.0+(-)1.3 cm Mitral Valve MV Pk E: 0.54 MV PK A: 0.75 MV Decel Time: 93.00 E/A: 0.70 E'Lateral: 7.51 E'Medial: 5.35 E/E' Med: 10.00 E/E' Lat: 7.10 PHT: 27.00 MVA PHT: 8.15 Decel [place]: 5.77 Aortic Valve AoV Pk Pilo: 4.95 AoV Mn Pilo: 3.81 AoV VTI: 1.08 AoV Pk Grad: 98.00 Aov Mn Grad: 64.00 ALEXANDRA Cont.VTI: 0.69 LVOT LVOT Pk Pilo: 0.85 LVOT Mn Pilo: 0.61 LVOT VTI: 0.18 LVOT Pk Grad: 3.00 LVOT Mn Grad: 2.00 LVOT Diam: 2.30 LVOT Area: 4.15 Diastolic Function MV Pk E: 0.54 MV Pk A: 0.75 E/A: 0.70 E'Medial: 5.35 E/E' Med: 10.00 E' Laterial: 7.51 E/E' Lat: 7.10 Pulmonary Veins Pulm Vein S/D 1.60 Updated by Maksim Claros on 01:10 PM with Status of Final Maksim Claros MD electronically signed on 01/02/2022 1:10:47 PM with status of Final
--- NOTE | 2022-01-02 09:13 | MHC.SHP ---
Pre-Procedural Eval Section A Date of Service: 01/02/22 The patient is an INPATIENT: No Changes since office visit: Yes Patient answered all questions; No Cold of Flu in the past 2 weeks, No New Medical Problems and No Changes in Medication The History & Physical has been completed within 30 days and I have reviewed it.: Yes Section B Chief Complaint: Presence of prosthetic heart valve Allergies: Allergies Allergy/AdvReac Type Severity Reaction Status Date / Time No Known Allergies Allergy Verified 01/02/22 08:47 [No Known Allergies*] Plan I have reviewed the history and physical and performed a pertinent physical examination on my patient. No changes have occurred unless specified.
[2022-01-02 10:51] VITALS: BP 95/46; PULSE 77; RESP 16; TEMP 36.2; O2SAT 99
[2022-01-02 11:06] VITALS: BP 94/48; PULSE 80; RESP 16; O2SAT 92
[2022-01-02 11:21] VITALS: BP 132/61; PULSE 77; RESP 16; O2SAT 92
[2022-01-02 11:36] VITALS: BP 124/63; PULSE 66; RESP 16; TEMP 36.1; O2SAT 94
== END 2022-01-02 11:15 | disposition home or self-care (01) ==
PROVIDERS: PCP Internal Medicine; Visit Provider Internal Medicine Cardiovascular Disease
PROC: (CPT 93312; principal; 2022-01-02 10:00)
DX: T82.857A Stenosis of other cardiac prosthetic devices, implants and grafts, initial encounter (principal); Y71.2 Prosthetic and other implants, materials and accessory cardiovascular devices associated with adverse incidents; Y92.9 Unspecified place or not applicable; Z95.2 Presence of prosthetic heart valve; I25.10 Atherosclerotic heart disease of native coronary artery without angina pectoris; J44.9 Chronic obstructive pulmonary disease, unspecified; Z79.82 Long term (current) use of aspirin; Z79.899 Other long term (current) drug therapy; Z87.891 Personal history of nicotine dependence
CPT/HCPCS: 93312

== ENCOUNTER 2022-01-10 15:45 | Outpatient (REF) | payer MEDICARE, OTHER, SELFPAY ==
[2022-01-10 16:05] LABS: Appearance Urine Clear; Color Urine Yellow; Glucose Urine UA Negative (Negative); Leukocyte Esterase Urine Negative (Negative); Nitrite Urine Negative (Negative); PH 5.5 (5.0-9.0); Urine Blood Negative (Negative); Urine Ketones Negative (Negative); Urine Protein Negative (Neg-Trace)
[2022-01-10 16:11] LABS: Bacteria Urine None Seen (None Seen); Hyaline Casts Urine 0-2 /LPF (0-2); RBC Urine 0-2 /HPF (0-2); Squamous Epithelial Cell Urine 0-2 /HPF (0-2); WBC Urine 0-5 /HPF (0-5)
== END 2022-01-10 15:46 | disposition home or self-care (01) ==
LOC: HO.LNP 15:45
PROVIDERS: Visit Provider Internal Medicine
DX: R31.9 Hematuria, unspecified (principal)
CPT/HCPCS: 81001

== ENCOUNTER → 2022-02-03 08:13 | Outpatient (BNVA) | payer MEDICARE, OTHER, SELFPAY | PROVIDERS: PCP Internal Medicine; Referring Provider Internal Medicine; Visit Provider Internal Medicine Cardiovascular Disease | DX: I35.0 Nonrheumatic aortic (valve) stenosis (principal); I25.10 Atherosclerotic heart disease of native coronary artery without angina pectoris; I73.9 Peripheral vascular disease, unspecified; I65.29 Occlusion and stenosis of unspecified carotid artery; E78.00 Pure hypercholesterolemia, unspecified; Z95.1 Presence of aortocoronary bypass graft; Z95.2 Presence of prosthetic heart valve | CPT/HCPCS: 99212 ==

== ENCOUNTER → 2022-02-05 13:38 | Outpatient (BNVA) | payer MEDICARE, OTHER, SELFPAY | PROVIDERS: PCP Internal Medicine; Referring Provider Internal Medicine Medical Oncology; Visit Provider Surgery | DX: K13.70 Unspecified lesions of oral mucosa (principal) | CPT/HCPCS: 99202 ==

== ENCOUNTER 2022-02-18 08:37 | Outpatient (REF) | payer MEDICARE, OTHER, SELFPAY ==
[2022-02-18 08:57] LABS: MANUAL DIFF FLAG NO
[2022-02-18 09:25] LABS: Basophils Percent Auto 0.3 % (0-2); Eosinophils Absolute Auto 0.1 X10*3/uL (0.0-0.4); Eosinophils Percent Auto 1.9 % (0-4); Hematocrit 43.8 % (42.0-52.0); Hemoglobin 14.3 g/dl (14.0-18.0); Imm Gran Abs Auto 0.02 X10*3/uL (0.00-0.03); Imm Gran Pct Auto 0.3 % (0.0-0.4); Lymphocytes Absolute Auto 0.8 X10*3/uL (1.2-4.9); Lymphocytes Percent Auto 13.1 % (20-40); Mean Corpuscular HGB Conc 32.6 g/dl (31.0-36.0); Mean Corpuscular Hemoglobin 28.3 pg (27.0-33.0); Mean Corpuscular Volume 86.7 fL (80.0-98.0); Mean Platelet Volume 9.8 fL (9.4-12.4); Monocytes Absolute Auto 0.6 X10*3/uL (0.1-1.2); Monocytes Percent Auto 9.4 % (2-11); Neutrophils Absolute Auto 4.8 x10*3/uL (2.0-8.3); Platelet Count 262 X10*3/uL (160-400); Red Blood Count 5.05 X10*6/uL (4.60-5.80); Red Cell Distribution Width 13.9 % (11.0-16.0); White Blood Count 6.4 X10*3/uL (4.8-10.8)
[2022-02-18 09:31] LABS: INTERNATIONAL NORM RATIO 0.9 (0.9-1.1); Prothrombin Time 10.3 SEC (10.0-13.1)
[2022-02-18 09:52] LABS: Anion Gap 11 (12-20); Blood Urea Nitrogen 13 mg/dL (9-16); Blood Urea Nitrogen 14 mg/dL (9-16); Calcium 9.7 mg/dL (8.4-10.2); Carbon Dioxide 27 mmol/L (22-29); Chloride 104 mmol/L (96-108); Estimated Glomerular Filt Rate > 60; Glucose Random 97 mg/dL (60-115); Potassium 4.8 mmol/L (3.3-5.1); Sodium 137 mmol/L (135-145)
== END 2022-02-18 08:38 | disposition home or self-care (01) ==
LOC: HO.LAB 08:37
PROVIDERS: Nurse Practitioner Family; PCP Internal Medicine; Visit Provider Surgery
DX: I35.0 Nonrheumatic aortic (valve) stenosis (principal); K13.70 Unspecified lesions of oral mucosa; Z95.1 Presence of aortocoronary bypass graft; Z95.2 Presence of prosthetic heart valve
CPT/HCPCS: 36415; 80048; 84520; 85025; 85610

== ENCOUNTER 2022-02-21 07:43 | Outpatient (REF) | payer MEDICARE, OTHER, SELFPAY ==
[2022-02-21] MEDS: iohexoL 350 MG/ML 100 ML INFUS..BTL 85 ML IV (09:02)
== END 2022-02-21 07:44 | disposition home or self-care (01) ==
LOC: HO.CT 07:43
PROVIDERS: Visit Provider Surgery
DX: K13.70 Unspecified lesions of oral mucosa (principal)
CPT/HCPCS: 70491; Q9967

== ENCOUNTER → 2022-03-26 13:42 | Outpatient (BNVA) | payer MEDICARE, OTHER, SELFPAY | PROVIDERS: PCP Internal Medicine; Referring Provider Internal Medicine; Visit Provider Nurse Practitioner Family | DX: I25.10 Atherosclerotic heart disease of native coronary artery without angina pectoris (principal); I73.9 Peripheral vascular disease, unspecified; I65.23 Occlusion and stenosis of bilateral carotid arteries; E78.00 Pure hypercholesterolemia, unspecified; Z95.2 Presence of prosthetic heart valve; Z95.1 Presence of aortocoronary bypass graft; Z95.820 Peripheral vascular angioplasty status with implants and grafts; Z79.82 Long term (current) use of aspirin; Z79.899 Other long term (current) drug therapy | CPT/HCPCS: 99212 ==

== ENCOUNTER 2022-04-18 15:27 | Outpatient (REF) | payer MEDICARE, OTHER, SELFPAY ==
[2022-04-18 15:31] LABS: MANUAL DIFF FLAG NO
[2022-04-18 15:41] LABS: Basophils Percent Auto 0.3 % (0-2); Eosinophils Absolute Auto 0.1 X10*3/uL (0.0-0.4); Hematocrit 39.6 % (42.0-52.0); Hemoglobin 12.9 g/dl (14.0-18.0); Imm Gran Abs Auto 0.05 X10*3/uL (0.00-0.03); Imm Gran Pct Auto 0.3 % (0.0-0.4); Lymphocytes Percent Auto 6.7 % (20-40); Mean Corpuscular HGB Conc 32.6 g/dl (31.0-36.0); Mean Corpuscular Hemoglobin 28.8 pg (27.0-33.0); Mean Corpuscular Volume 88.4 fL (80.0-98.0); Mean Platelet Volume 10.5 fL (9.4-12.4); Monocytes Absolute Auto 1.1 X10*3/uL (0.1-1.2); Monocytes Percent Auto 7.6 % (2-11); Neutrophils Absolute Auto 12.4 x10*3/uL (2.0-8.3); Neutrophils Percent Auto 84.1 % (45-73); Platelet Count 400 X10*3/uL (160-400); Red Blood Count 4.48 X10*6/uL (4.60-5.80); Red Cell Distribution Width 12.4 % (11.0-16.0); White Blood Count 14.7 X10*3/uL (4.8-10.8)
[2022-04-18 16:23] LABS: Anion Gap 16 (12-20); Blood Urea Nitrogen 28 mg/dL (9-16); Calcium 10.1 mg/dL (8.4-10.2); Carbon Dioxide 24 mmol/L (22-29); Chloride 103 mmol/L (96-108); Estimated Glomerular Filt Rate > 60; Glucose Fasting 106 mg/dL (60-99); Potassium 3.8 mmol/L (3.3-5.1); Sodium 139 mmol/L (135-145)
== END 2022-04-18 15:28 | disposition home or self-care (01) ==
LOC: HO.LNP 15:27
PROVIDERS: Visit Provider Internal Medicine
DX: I25.10 Atherosclerotic heart disease of native coronary artery without angina pectoris (principal); I10 Essential (primary) hypertension; C41.1 Malignant neoplasm of mandible; Z95.2 Presence of prosthetic heart valve
CPT/HCPCS: 80048; 85025

== ENCOUNTER → 2022-05-05 12:48 | Outpatient (REF) | payer MEDICARE, OTHER, SELFPAY ==
--- NOTE | 2022-05-05 12:52 | CA_ITS ---
Transthoracic Echocardiogram Patient (Last, First, Middle): Daniel Whitaker F Gender: Male Date of : 1950 Age: 71 Procedure Date: 05/05/2022 Procedure Type: Transthoracic Echocardiogram Location: OP Height: 177.8 cm Weight: 72.58 kg BSA: 1.90 m2 Heart Rate: 67 bpm BP: 120 / 55 mmHg Composition Worker: ROLAND Referring MD: Suzanne Sarah CNP Fence Supervisor: Maksim Claros MD Symptoms: S/P AV REPLACEMENT Study Quality: Technically Difficult ECG Rhythm: Sinus Conclusions: - 1. Technically very limited study 2. Low normal LV ejection fraction 50-55% 3. Normally function bioprosthetic aortic valve with mean gradient of 11 mmHg Findings Procedure Information Contrast agent, definity, is being given per protocol with complications as noted. Left Ventricle Normal left ventricular cavity size. There is normal left ventricular wall thickness. The left ventricular systolic function is low normal. The visually estimated ejection fraction is between 50-55%. Spectral Doppler is indicative of an impaired relaxation filling pattern. Right Ventricle The right ventricle was not well visualized. Atria The left atrium is normal in size. Interatrial shunt cannot be excluded. The right atrium was not well visualized. Aortic Valve A bioprosthetic aortic valve is present. The prosthetic aortic valve appears to be functioning normally. The aortic valve was not well visualized. The mean gradient is 11 mmHg. There is no aortic valve regurgitation. the bioprosthetic valve is well seated without any abnormal rocking motion Mitral Valve The mitral valve was not well visualized. There is trace mitral valve regurgitation. There is no mitral valve stenosis. Pulmonic Valve The pulmonic valve was not well visualized. Tricuspid Valve The tricuspid valve was not well visualized. Normal right atrial pressure. Great Vessels The aorta was not well visualized. The pulmonary artery was not well visualized. Venous The inferior vena cava is normal in size and collapses greater than 50% with inspiration. Pericardium/Pleural The pericardium was not well visualized. Prior Study Comparison Changes noted compared to prior study dated: 11/08/2021. bioprosthetic aortic valve with normal gradient of about 11 mmHg Measurements 2D Linear Measurements IVSd: 1.08 0.6-0.9/0.6-1.0 cm LVIDd: 4.72 3.9-5.3/4.2-5.9 cm LVIDd Index: 2.48 2.4-3.2/2.2-3.1 cm/m2 LVIDs: 3.63 2.0-3.6 cm LVPWd: 0.96 0.7-1.1 cm LA Diam: 3.70 2.7-3.8/3.0-4.0 cm LAIDs Index: 1.95 1.5-2.3 cm/m2 LV Mass: 212.20 67-162/88-224 g LV Mass Index: 111.68 43-95/49-115 g/m2 LVOT Diam: 2.00 3.0+(-)1.3 cm 2D Systolic Function EF 4C: 49.30 >55% EF 2C: 51.60 >55% EF BiP: 52.40 >55% Mitral Valve MV Pk E: 0.68 MV PK A: 0.75 MV Decel Time: 282.00 E/A: 0.90 E'Lateral: 5.92 E'Medial: 13.40 E/E' Med: 5.10 E/E' Lat: 11.50 PHT: 83.00 MVA PHT: 2.65 Decel [place]: 2.42 Aortic Valve AoV Pk Pilo: 2.27 AoV Mn Pilo: 1.49 AoV VTI: 0.40 AoV Pk Grad: 21.00 Aov Mn Grad: 11.00 ALEXANDRA Cont.VTI: 1.83 LVOT LVOT Pk Pilo: 1.43 LVOT Mn Pilo: 0.78 LVOT VTI: 0.24 LVOT Pk Grad: 8.00 LVOT Mn Grad: 3.00 LVOT Diam: 2.00 LVOT Area: 3.14 Diastolic Function MV Pk E: 0.68 MV Pk A: 0.75 E/A: 0.90 E'Medial: 13.40 E/E' Med: 5.10 E' Laterial: 5.92 E/E' Lat: 11.50 Tricuspid Valve RA Press: 3.00 Great Vessels Aorta Sinus of Valsalva: 2.50 2.0-3.5 cm Ao Asc: 2.90 2.1-3.4 cm Pulmonary Valve PV Pk Pilo: 1.15 Peak PV Grad: 5.00 Updated in Other Vendor System with Status of Final Maksim Claros MD electronically signed on 05/06/2022 2:06:30 PM with status of Final
== END ==
LOC: HO.CARD 12:48
PROVIDERS: PCP Internal Medicine; Visit Provider Nurse Practitioner Acute Care
DX: Z95.4 Presence of other heart-valve replacement (principal)
CPT/HCPCS: 93306; Q9957

== ENCOUNTER → 2022-06-26 08:44 | Outpatient (BNVA) | payer MEDICARE, OTHER, SELFPAY | PROVIDERS: PCP Internal Medicine; Referring Provider Internal Medicine; Visit Provider Internal Medicine Cardiovascular Disease | DX: I25.10 Atherosclerotic heart disease of native coronary artery without angina pectoris (principal); I95.1 Orthostatic hypotension; Z95.2 Presence of prosthetic heart valve | CPT/HCPCS: 99212 ==

== ENCOUNTER 2022-10-02 08:00 | Outpatient (RCR) | payer MEDICARE, OTHER, SELFPAY ==
[2020-03-29 08:09] VITALS: BP 145/72; PULSE 74; RESP 18; TEMP 36.1; O2SAT 95; BMI 27.1
[2020-03-29 08:15] LABS: MANUAL DIFF FLAG NO
--- NOTE | 2020-03-29 08:22 | P.PNHO_ITS ---
Medical Summary - Medical Summary Date of Service: 03/29/20 Chief complaint: F/U for Head and Neck Cancer Medical Summary: DIAGNOSES: 1. 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 2. Positive left jugulodigastric lymph node. CURRENT THERAPY: Combined modality therapy with radiation along with Cisplatin weekly 80 mg per meter square, between July 05, 2013 and August 23, 2013, he had 8 treatments. Last ENT exam a couple of months ago. Interval History Interval history: History of Present Illness: This is a pleasant 69 year-old gentleman, here for a follow-up visit. He denies any changes in his medical history nor medications. He is doing really well. He tells me he had a recent exam by ENT a couple of months ago, by Dr. Dawn. Everything checked out fine. He still gets hoarseness, intermittently. He denies any sore throat pain in the throat or dysphagia. No odynophagia. He denies noticing any adenopathy. He has not had any cough nor sputum production. No chest pain or trouble breathing. No abdominal pain nausea vomiting heartburn indigestion. His bowels are working without any gross blood in it. He is due for of colonoscopy in September. He enjoys a good appetite. He has gained weight. He is full of energy. He is in excellent spirits. Rest of the review of systems is unremarkable. Review of Systems - Constitutional Reports no additional constitutional complaints - Eyes Reports no additional eye complaints - ENT Reports no additional ear, nose, mouth, and throat complaints - Cardiovascular Reports no additional cardiovascular complaints - Respiratory Reports no additional respiratory complaints - Gastrointestinal Reports no additional gastrointestinal complaints - Genitourinary Genitourinary: Reports no additional male genitourinary complaints - Musculoskeletal Reports no additional musculoskeletal complaints - Integumentary/Breasts Skin/Breast: Reports no additional skin complaints - Neurologic Reports no additional neurologic complaints - Psychiatric Reports no additional psychiatric complaints - Endocrine Reports no additional endocrine complaints - Hematologic/Lymphatic Reports no additional hematologic/lymphatic complaints - Allergic/Immunologic Reports no additional allergic/immunologic complaints [facility] Medical History: Medical History (Last Reviewed 03/29/20 @ 08:17 by Basilia Nix RN) Aortic valvular disease Arrhythmia Back pain CAD (coronary artery disease) Cancer COPD (chronic obstructive pulmonary disease) Elevated cholesterol History of chemotherapy Hx of radiation therapy Personal history of nicotine dependence PVD (peripheral vascular disease) Functional capacity: independent ambulation Patient : No Surgical History: Surgical History (Last Reviewed 03/29/20 @ 08:17 by Basilia Nix RN) History of laryngoscopy History of surgical removal of pilonidal cyst Hx of aortic valve replacement Hx of CABG Hx of colonoscopy Smoking status: Former smoker Home Medications and Allergies Home Medications Medication Instructions Recorded Confirmed Type aspirin 81 mg PO DAILY 12/12/19 03/29/20 History cilostazol 1 tab PO BID 12/12/19 03/29/20 History metoprolol succinate 1 tab PO DAILY 12/12/19 03/29/20 History rosuvastatin 1 tab PO DAILY 12/12/19 03/29/20 History cholecalciferol (vitamin D3) 50 mcg PO DAILY 03/29/20 03/29/20 History [Vitamin D3] Allergies Allergy/AdvReac Type Severity Reaction Status Date / Time No Known Allergies Allergy Verified 12/12/19 10:47 [No Known Allergies*] Exam Vital signs: Vital Signs Temp 97.0 F 03/29/20 08:09 Pulse 74 03/29/20 08:09 Resp 18 03/29/20 08:09 BP 145/72 H 03/29/20 08:09 Pulse Ox 95 03/29/20 08:09 Intake & Output 03/28/20 03/29/20 03/29/20 18:59 06:59 18:59 Other: Weight 85.9 kg Weight 85.9 kg Body Mass Index 27.1 - Constitutional Present: no acute distress - Routine HEENT Exam Head: Present: normal inspection Eye: Present: normal appearance ENT: Present: mucous membranes moist - Routine Neck Exam Present: full ROM - Routine Respiratory Exam Present: CTAB - Routine Cardiovascular Exam Cardiovascular: Present: RRR, S1, S2 - Routine Abdominal Exam Present: soft, nontender - Routine Extremities Exam Present: nontender - Routine Back/Spine/Pelvis Exam Back/Spine: Present: full ROM - Routine Skin Exam Present: intact - Routine Neurological Exam Present: alert, oriented X3 - Routine Psychiatric Exam Present: normal affect Data - Labs CBC & Chem 7: 03/29/20 08:05 03/29/20 08:05 Progress Note: A/P (1) Head and neck cancer Status: Acute Assessment and plan: 69 year-old gentleman, with history of Moderately Differentiated Keratinizing Squamous Cell Carcinoma. He underwent combined modality therapy with radiation along with chemotherapy completed June 2013. He is doing amazingly well, so far. He recently had an ENT exam a couple of months ago, which was negative. He remains clinically, in remission. PLAN: The plan is to continue to monitor him. He is clinically doing well and his labs are normal. His next direct laryngoscopy will be in February of this year, by Dr. Dawn. He will return in 12 months for a followup visit. Thank you, Please send a copy to: Dr. Puneet Rubalcava. Dr. Maksim Claros. - Time Spent With Patient Total time spent is greater than 50% in coordination of care (as documented) at patient's floor/unit and/or counseling patient: 25 - 35 minutes
[2020-03-29 08:23] LABS: Basophils Percent Auto 0.4 % (0-2); Eosinophils Absolute Auto 0.2 X10*3/uL (0.0-0.4); Eosinophils Percent Auto 3.1 % (0-4); Hematocrit 42.6 % (42-52); Hemoglobin 14.2 g/dl (14.0-18.0); Imm Gran Abs Auto 0.03 X10*3/uL (0.00-0.03); Imm Gran Pct Auto 0.4 % (0.0-0.4); Lymphocytes Percent Auto 13.3 % (20-40); Mean Corpuscular HGB Conc 33.3 g/dl (31.0-36.0); Mean Corpuscular Hemoglobin 29.8 pg (27.0-33.0); Mean Corpuscular Volume 89.5 fL (80-98); Mean Platelet Volume 9.7 fL (9.4-12.4); Monocytes Absolute Auto 0.7 X10*3/uL (0.1-1.2); Monocytes Percent Auto 9.3 % (2-11); Neutrophils Absolute Auto 5.6 X10*3/uL (2.0-8.3); Neutrophils Percent Auto 73.5 % (45-73); Platelet Count 220 X10*3/uL (160-400); Red Blood Count 4.76 X10*6/uL (4.60-5.80); Red Cell Distribution Width 12.8 % (11.0-16.0); White Blood Count 7.7 X10*3/uL (4.8-10.8)
--- NOTE | 2020-03-29 08:38 | MHC.HEMONC ---
Patient here for follow-up. Labs drawn. Clinical summary updated with nurse. Provider seen patient.
[2020-03-29 08:44] LABS: Alanine Aminotransferase 36 U/L (0-40); Albumin Level 4.5 g/dL (3.5-5.0); Alkaline Phosphatase 38 U/L (39-117); Anion Gap 12 (12-20); Aspartate Amino Transferase 23 U/L (5-37); Bilirubin Total 0.6 mg/dL (0.0-1.0); Blood Urea Nitrogen 15 mg/dL (9-16); Carbon Dioxide 27 mmol/L (22-29); Chloride 105 mmol/L (96-108); Creatinine Clr Calc Pharmacy 74.4; Estimated Glomerular Filt Rate > 60; Glucose Random 105 mg/dL (60-115); Potassium 4.6 mmol/l (3.3-5.1); Sodium 139 mmol/L (135-145); Total Protein 6.8 g/dL (6.5-8.0)
[2021-04-01 08:07] VITALS: BP 162/72; PULSE 83; RESP 18; TEMP 37; O2SAT 96; BMI 29.0
--- NOTE | 2021-04-01 08:27 | P.PNHO_ITS ---
Medical Summary - Medical Summary Date of Service: 04/01/21 Chief complaint: follow-up for: Head and neck carcinoma. Medical Summary: DIAGNOSES: 1. 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 2. Positive left jugulodigastric lymph node. CURRENT THERAPY: Combined modality therapy with radiation along with Cisplatin weekly 80 mg per meter square, between July 05, 2013 and August 23, 2013, he had 8 treatments. Last ENT exam a couple of weeks ago. Interval History Interval history: History of Present Illness: This is a pleasant 70 year-old gentleman, here for a follow-up visit. He tells me he noticed some swelling and induration on the left side of his neck about a month ago. He denies any sore throat, pressure symptoms nor pain. Denies any ear pain. He had a recent exam by Dr. Dawn, March 11. He said the throat looked great. He even went further down. He has been scheduled for a CT scan of the neck on Thursday. He denies any other changes in his medical history nor medications. Apart from this, he is doing really well. He still gets hoarseness, intermittently. He denies any sore throat pain in the throat or dysphagia. No odynophagia. He denies noticing any adenopathy. He has not had any cough nor sputum production. No chest pain or trouble breathing. No abdominal pain nausea vomiting heartburn indigestion. His bowels are working without any gross blood in it. He is due for of colonoscopy in September. He enjoys a good appetite. He has gained weight. He is full of energy. He is in excellent spirits. Rest of the review of systems is unremarkable. Review of Systems - Constitutional Reports no additional constitutional complaints - Eyes Reports no additional eye complaints - ENT Reports no additional ear, nose, mouth, and throat complaints, Reports neck mass - Cardiovascular Reports no additional cardiovascular complaints - Respiratory Reports no additional respiratory complaints - Gastrointestinal Reports no additional gastrointestinal complaints - Genitourinary Genitourinary: Reports no additional male genitourinary complaints - Musculoskeletal Reports no additional musculoskeletal complaints - Integumentary/Breasts Skin/Breast: Reports no additional skin complaints - Neurologic Reports no additional neurologic complaints - Psychiatric Reports no additional psychiatric complaints - Endocrine Reports no additional endocrine complaints - Hematologic/Lymphatic Reports no additional hematologic/lymphatic complaints - Allergic/Immunologic Reports no additional allergic/immunologic complaints [facility] Medical History: Medical History (Last Updated 02/04/21 @ 13:39 by Maksim Claros MD) Aortic valvular disease Arrhythmia Back pain CAD (coronary artery disease) Cancer COPD (chronic obstructive pulmonary disease) Elevated cholesterol History of chemotherapy Hx of radiation therapy Personal history of nicotine dependence PVD (peripheral vascular disease) Functional capacity: independent ambulation Patient : No Surgical History: Surgical History (Last Reviewed 02/04/21 @ 13:38 by Maksim Claros MD) History of laryngoscopy History of surgical removal of pilonidal cyst Hx of aortic valve replacement Hx of CABG Hx of colonoscopy Social History: Social History (Last Reviewed 02/04/21 @ 13:38 by Maksim Claros MD) Tobacco History: Cigarette Packs Per Day: 1 Years Smoked: 45 Second Hand Smoke Exposure: No Nutrition Assessment: Patient : No Oncology Screenings - ECOG Performance Status ECOG Performance Status: 0 Home Medications and Allergies Home Medications Medication Instructions Recorded Confirmed Type aspirin 81 mg tablet 81 mg PO DAILY 12/12/19 04/01/21 History cholecalciferol (vitamin 50 mcg PO DAILY 03/29/20 04/01/21 History D3) 50 mcg (2,000 unit) tablet (Vitamin D3) metoprolol succinate 50 mg 50 mg PO DAILY tab 06/05/20 04/01/21 History tablet,extended release 24 hr rosuvastatin 40 mg tablet 40 mg PO DAILY tab 06/05/20 04/01/21 History Allergies Allergy/AdvReac Type Severity Reaction Status Date / Time No Known Allergies Allergy Verified 12/12/19 10:47 [No Known Allergies*] Exam Vital signs: Vital Signs Temp 98.6 F 04/01/21 08:07 Pulse 83 04/01/21 08:07 Resp 18 04/01/21 08:07 BP 162/72 H 04/01/21 08:07 Pulse Ox 96 04/01/21 08:07 Intake & Output 03/31/21 04/01/21 04/01/21 18:59 06:59 18:59 Other: Weight 91.6 kg [place] Weight in Grams 57250 Weight 91.6 kg BMI result [employer] 4Bd Body Mass Index [employer] New 4d 29.0 - Constitutional Present: no acute distress - Routine HEENT Exam Head: Present: normal inspection Eye: Present: normal appearance ENT: Present: mucous membranes moist - Routine Neck Exam Present: full ROM Comments: There is induration and masses on the left neck. The area appears rather hard. - Routine Respiratory Exam Present: CTAB - Routine Cardiovascular Exam Cardiovascular: Present: RRR, S1, S2 - Routine Abdominal Exam Present: soft, nontender - Routine Extremities Exam Present: nontender - Routine Back/Spine/Pelvis Exam Back/Spine: Present: full ROM - Routine Skin Exam Present: intact - Routine Neurological Exam Present: alert, oriented X3 - Routine Psychiatric Exam Present: normal affect Data - Labs CBC & Chem 7: 04/01/21 08:27 04/01/21 08:27 Labs: 03/29/20 08:05 CMP [Comprehensive Met. Panel] Routine Complete Blood Count Auto Diff Routine Laboratory Last Values WBC 7.7 X10*3/uL (4.8-10.8) 03/29/20 08:05 RBC 4.76 X10*6/uL (4.60-5.80) 03/29/20 08:05 Hgb 14.2 g/dl (14.0-18.0) 03/29/20 08:05 Hct 42.6 % (42-52) 03/29/20 08:05 MCV 89.5 fL (80-98) 03/29/20 08:05 MCH 29.8 pg (27.0-33.0) 03/29/20 08:05 MCHC 33.3 g/dl (31.0-36.0) 03/29/20 08:05 RDW 12.8 % (11.0-16.0) 03/29/20 08:05 Plt Count 220 X10*3/uL (160-400) 03/29/20 08:05 MPV 9.7 fL (9.4-12.4) 03/29/20 08:05 Immature Gran % (Auto) 0.4 % (0.0-0.4) 03/29/20 08:05 Neut % (Auto) 73.5 % (45-73) H 03/29/20 08:05 Lymph % (Auto) 13.3 % (20-40) L 03/29/20 08:05 [place] % (Auto) 9.3 % (2-11) 03/29/20 08:05 Eos % (Auto) 3.1 % (0-4) 03/29/20 08:05 Baso % (Auto) 0.4 % (0-2) 03/29/20 08:05 Lymph # (Auto) 1.0 X10*3/uL (1.2-4.9) L 03/29/20 08:05 [place] # (Auto) 0.7 X10*3/uL (0.1-1.2) 03/29/20 08:05 Eos # (Auto) 0.2 X10*3/uL (0.0-0.4) 03/29/20 08:05 Baso # (Auto) 0.0 X10*3/uL (0.0-0.2) 03/29/20 08:05 Abs Immat Gran (auto) 0.03 X10*3/uL (0.00-0.03) 03/29/20 08:05 Absolute Neuts (auto) 5.6 X10*3/uL (2.0-8.3) 03/29/20 08:05 Absolute Nucleated RBC 0.000 X10*3/uL (0.0-0.012) 03/29/20 08:05 Nucleated RBC % (auto) 0.0 /100WBC (0.0-0.2) 03/29/20 08:05 Sodium 139 mmol/L (135-145) 03/29/20 08:05 Potassium 4.6 mmol/l (3.3-5.1) 03/29/20 08:05 Chloride 105 mmol/L (96-108) 03/29/20 08:05 Carbon Dioxide 27 mmol/L (22-29) 03/29/20 08:05 Anion Gap 12 (12-20) 03/29/20 08:05 BUN 15 mg/dL (9-16) 03/29/20 08:05 Creatinine 0.94 mg/dL (0.5-1.4) 03/29/20 08:05 Estim Creat Clear Calc 74.4 03/29/20 08:05 Estimated GFR > 60 03/29/20 08:05 Random Glucose 105 mg/dL (60-115) 03/29/20 08:05 Calcium 9.0 mg/dL (8.4-10.2) D 03/29/20 08:05 Total Bilirubin 0.6 mg/dL (0.0-1.0) 03/29/20 08:05 AST 23 U/L (5-37) 03/29/20 08:05 ALT 36 U/L (0-40) 03/29/20 08:05 Alkaline Phosphatase 38 U/L (39-117) L 03/29/20 08:05 Total Protein 6.8 g/dL (6.5-8.0) 03/29/20 08:05 Albumin 4.5 g/dL (3.5-5.0) 03/29/20 08:05 Assessment and Plan Patient Active problem list reviewed?: Yes (1) Head and neck cancer Status: Acute Assessment and plan: 70 year-old gentleman, with history of Moderately Differentiated Keratinizing Squamous Cell Carcinoma. He underwent combined modality therapy with radiation along with chemotherapy completed June 2013. He has done well, so far. However he has noted adenopathy of the left neck about a month ago. This is rather concerning. He recently had a laryngoscopic exam a couple of weeks ago, by Dr. Dawn, which was negative. CEA level: 2.0. PLAN: The plan is to proceed with a CT scan of head and neck area. This is scheduled for Thursday. His labs are normal. I will see him back next Thursday to review the results of the CT scan and make further plans. If there is disease recurrence he would likely be a candidate for systemic chemotherapy. Thank you, Please send a copy to: Dr. Puneet Rubalcava. Dr. Maksim Claros. Addendum: He had a CT scan of head and neck area, last thursday,04/03 which revealed: 1. Posttreatment changes noted on the left side of the neck, with no convincing evidence for local recurrence or lymphadenopathy. 2. Extensive atheromatous calcifications of the carotid bulbs bilaterally with possible progression of luminal narrowing bilaterally since prior study. Suggest correlation with carotid ultrasound. 3. Multiple mediastinal lymph nodes largely unchanged in appearance from the previous CT chest of 01/16/2020. This is reassuring. - Time Spent With Patient Time Spent with Patient (in minutes): 30
[2021-04-01 08:34] LABS: MANUAL DIFF FLAG NO
[2021-04-01 08:39] LABS: Basophils Percent Auto 0.4 % (0-2); Eosinophils Absolute Auto 0.2 X10*3/uL (0.0-0.4); Eosinophils Percent Auto 2.8 % (0-4); Hematocrit 42.2 % (42.0-52.0); Hemoglobin 13.9 g/dl (14.0-18.0); Imm Gran Abs Auto 0.05 X10*3/uL (0.00-0.03); Imm Gran Pct Auto 0.6 % (0.0-0.4); Lymphocytes Percent Auto 11.8 % (20-40); Mean Corpuscular HGB Conc 32.9 g/dl (31.0-36.0); Mean Corpuscular Hemoglobin 29.6 pg (27.0-33.0); Mean Platelet Volume 9.5 fL (9.4-12.4); Monocytes Absolute Auto 0.7 X10*3/uL (0.1-1.2); Monocytes Percent Auto 9.1 % (2-11); Neutrophils Absolute Auto 6.2 x10*3/uL (2.0-8.3); Neutrophils Percent Auto 75.3 % (45-73); Platelet Count 242 X10*3/uL (160-400); Red Blood Count 4.69 X10*6/uL (4.60-5.80); Red Cell Distribution Width 12.9 % (11.0-16.0); White Blood Count 8.2 X10*3/uL (4.8-10.8)
[2021-04-01 08:55] LABS: Alanine Aminotransferase 27 U/L (0-40); Albumin Level 4.5 g/dL (3.5-5.0); Alkaline Phosphatase 40 U/L (39-117); Anion Gap 10 (12-20); Aspartate Amino Transferase 22 U/L (5-37); Bilirubin Total 0.7 mg/dL (0.0-1.0); Blood Urea Nitrogen 15 mg/dL (9-16); Calcium 9.8 mg/dL (8.4-10.2); Carbon Dioxide 28 mmol/L (22-29); Chloride 106 mmol/L (96-108); Creatinine Clr Calc Pharmacy 73.7; Estimated Glomerular Filt Rate > 60; Glucose Random 106 mg/dL (60-115); Potassium 5.2 mmol/L (3.3-5.1); Sodium 139 mmol/L (135-145); Total Protein 7.1 g/dL (6.5-8.0)
--- NOTE | 2021-04-01 15:39 | MHC.HEMONC ---
Pt here for follow up with Dr Nicole. States he is feeling well since last follow up 1 year ago. His only c/o is that he now has a hard knot in the left side of his neck. He has seen Dr Dawn, and had a scope done, which was good per pt. He is scheduled for CT scan on 04/03. Dr Nicole in to see pt. Follow up scheduled for 04/08.
--- NOTE | 2021-04-08 08:07 | P.PNHO_ITS ---
Medical Summary - Medical Summary Date of Service: 04/08/21 Chief complaint: Follow-up for: History of head and neck carcinoma. Medical Summary: DIAGNOSES: 1. 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 2. Positive left jugulodigastric lymph node. CURRENT THERAPY: Combined modality therapy with radiation along with Cisplatin weekly 80 mg per meter square, between July 05, 2013 and August 23, 2013, he had 8 treatments. Last ENT exam 3 weeks ago. Interval History Interval history: History of Present Illness: This is a pleasant 70 year-old gentleman, here for a follow-up visit. He had noticed some swelling and induration on the left side of his neck about 5 weeks ago. He denies any sore throat, pressure symptoms nor pain. Denies any ear pain. He had a recent exam by Dr. Dawn, March 11. He said the throat looked great. He even went further down. He tells me that he notices that the swelling on the left neck has gone down. Even since last week. He had a CT scan of the neck on Thursday, 04/03: 1. Posttreatment changes noted on the left side of the neck, with no convincing evidence for local recurrence or lymphadenopathy. 2. Extensive atheromatous calcifications of the carotid bulbs bilaterally with possible progression of luminal narrowing bilaterally since prior study. Suggest correlation with carotid ultrasound. 3. Multiple mediastinal lymph nodes largely unchanged in appearance from the previous CT chest of 01/16/2020. He denies any other changes in his medical history nor medications. Apart from this, he is doing really well. He still gets hoarseness, intermittently. He denies any sore throat pain in the throat or dysphagia. No odynophagia. He denies noticing any adenopathy. He has not had any cough nor sputum production. No chest pain or trouble breathing. No abdominal pain nausea vomiting heartburn indigestion. His bowels are working without any gross blood in it. He is due for of colonoscopy in September. He enjoys a good appetite. He has gained weight. He is full of energy. He is in excellent spirits. Rest of the review of systems is unremarkable. Review of Systems - Constitutional Reports no additional constitutional complaints - Eyes Reports no additional eye complaints - ENT Reports no additional ear, nose, mouth, and throat complaints - Cardiovascular Reports no additional cardiovascular complaints - Respiratory Reports no additional respiratory complaints - Gastrointestinal Reports no additional gastrointestinal complaints - Genitourinary Genitourinary: Reports no additional male genitourinary complaints - Musculoskeletal Reports no additional musculoskeletal complaints - Integumentary/Breasts Skin/Breast: Reports no additional skin complaints - Neurologic Reports no additional neurologic complaints - Psychiatric Reports no additional psychiatric complaints - Endocrine Reports no additional endocrine complaints - Hematologic/Lymphatic Reports no additional hematologic/lymphatic complaints - Allergic/Immunologic Reports no additional allergic/immunologic complaints FORMERLY [facility], 1928–1983 Medical History: Medical History (Last Updated 02/04/21 @ 13:39 by Maksim Claros MD) Aortic valvular disease Arrhythmia Back pain CAD (coronary artery disease) Cancer COPD (chronic obstructive pulmonary disease) Elevated cholesterol History of chemotherapy Hx of radiation therapy Personal history of nicotine dependence PVD (peripheral vascular disease) Functional capacity: independent ambulation Patient : No Surgical History: Surgical History (Last Reviewed 02/04/21 @ 13:38 by Maksim Claros MD) History of laryngoscopy History of surgical removal of pilonidal cyst Hx of aortic valve replacement Hx of CABG Hx of colonoscopy Social History: Social History (Last Reviewed 02/04/21 @ 13:38 by Maksim Claros MD) Tobacco History: Cigarette Packs Per Day: 1 Years Smoked: 45 Second Hand Smoke Exposure: No Nutrition Assessment: Patient : No Oncology Screenings - ECOG Performance Status ECOG Performance Status: 0 Home Medications and Allergies Home Medications Medication Instructions Recorded Confirmed Type aspirin 81 mg tablet 81 mg PO DAILY 12/12/19 04/01/21 History cholecalciferol (vitamin 50 mcg PO DAILY 03/29/20 04/01/21 History D3) 50 mcg (2,000 unit) tablet (Vitamin D3) metoprolol succinate 50 mg 50 mg PO DAILY tab 06/05/20 04/01/21 History tablet,extended release 24 hr rosuvastatin 40 mg tablet 40 mg PO DAILY tab 06/05/20 04/01/21 History Allergies Allergy/AdvReac Type Severity Reaction Status Date / Time No Known Allergies Allergy Verified 12/12/19 10:47 [No Known Allergies*] Exam Vital signs: Vital Signs Temp 98.6 F 04/01/21 08:07 Pulse 83 04/01/21 08:07 Resp 18 04/01/21 08:07 BP 162/72 H 04/01/21 08:07 Pulse Ox 96 04/01/21 08:07 Weight 91.6 kg BMI result [place] 4d Body Mass Index 29.0 - Constitutional Present: no acute distress - Routine HEENT Exam Head: Present: normal inspection - Routine Neck Exam Present: full ROM - Routine Respiratory Exam Present: CTAB - Routine Cardiovascular Exam Cardiovascular: Present: RRR, S1, S2 - Routine Abdominal Exam Present: soft, nontender - Routine Extremities Exam Present: nontender - Routine Back/Spine/Pelvis Exam Back/Spine: Present: full ROM - Routine Skin Exam Present: intact - Routine Neurological Exam Present: alert, oriented X3 - Routine Psychiatric Exam Present: normal affect Data - Labs CBC & Chem 7: 04/01/21 08:27 04/01/21 08:27 Assessment and Plan Patient Active problem list reviewed?: Yes (1) Head and neck cancer Status: Acute Assessment and plan: 70 year-old gentleman, with history of Moderately Differentiated Keratinizing Squamous Cell Carcinoma. He underwent combined modality therapy with radiation along with chemotherapy completed June 2013. He has done well, so far. However he has noted adenopathy of the left neck about a month ago. This is rather concerning. He recently had a laryngoscopic exam a couple of weeks ago, by Dr. Dawn, which was negative. CEA level: 2.0. He had a CT scan of head and neck area, last thursday, which revealed: 1. Posttreatment changes noted on the left side of the neck, with no convincing evidence for local recurrence or lymphadenopathy. 2. Extensive atheromatous calcifications of the carotid bulbs bilaterally with possible progression of luminal narrowing bilaterally since prior study. Suggest correlation with carotid ultrasound. 3. Multiple mediastinal lymph nodes largely unchanged in appearance from the previous CT chest of 01/16/2020. This is reassuring. PLAN: His labs are normal. I discussed the results of the CT scan with Dr. Dawn. He will proceed with a follow-up exam and take it from there. And decide if he needs a biopsy or can be followed closely. If there is disease recurrence he would likely be a candidate for systemic chemotherapy. We will return in 6 months for a follow-up visit, however he will call me any time if he notices any changes. Thank you, Please send a copy to: Dr. Puneet Rubalcava. Dr. Maksim Claros. - Time Spent With Patient Time Spent with Patient (in minutes): 25
[2021-04-08 08:17] VITALS: BP 140/63; PULSE 89; RESP 95; TEMP 36.6; O2SAT 96
[2021-04-08 08:19] VITALS: BMI 28.8
--- NOTE | 2021-04-08 13:46 | MHC.HEMONC ---
Here for follow up with Dr Nicole to discuss results of ct scan. Results given to pt by Dr Nicole. Follow up scheduled for 6 months.
[2021-10-01 07:53] VITALS: BP 170/97; PULSE 89; RESP 16; TEMP 36.3; O2SAT 98; BMI 24.6
--- NOTE | 2021-10-01 08:11 | PM.HEMONCPN ---
Medical Summary - Medical Summary Date of Service: 10/01/21 Chief complaint: Follow-up for: Head and neck carcinoma. Medical Summary: DIAGNOSES: 1. 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 2. Positive left jugulodigastric lymph node. CURRENT THERAPY: Combined modality therapy with radiation along with Cisplatin weekly 80 mg per meter square, between July 05, 2013 and August 23, 2013, he had 8 treatments. Last ENT exam in March. Interval History Interval history: History of Present Illness: This is a pleasant 71 year-old gentleman, here for a follow-up visit. He tells me he is doing very well now. His and him had COVID about a month ago. They are usually pretty good about masking up however their [id number] and they went to the and that is where they caught it. It was not too bad. First 2 days he felt he had the flu. However he still does not have much of a sense of taste. Though sometimes he gets a little bit. He has been trying to eat too much to find something to taste. Other than that, he has been doing well. He denies any sore throat, pressure symptoms nor pain. Denies any ear pain. He still gets hoarseness, intermittently. He denies any sore throat pain in the throat or dysphagia. No odynophagia. He denies noticing any adenopathy. He has not had any cough nor sputum production. No chest pain or trouble breathing. No abdominal pain nausea vomiting heartburn indigestion. His bowels are working without any gross blood in it. He is due for of colonoscopy in September. He enjoys a good appetite. He has gained weight. He is full of energy. He is in excellent spirits. Rest of the review of systems is unremarkable. He denies any other changes in his medical history nor medications. He had an exam by Dr. Dawn, March 11. He said the throat looked great. He even went further down. He tells me that he notices that the swelling on the left neck has gone down. Even since last week. He had a CT scan of the neck on April 03: 1. Posttreatment changes noted on the left side of the neck, with no convincing evidence for local recurrence or lymphadenopathy. 2. Extensive atheromatous calcifications of the carotid bulbs bilaterally with possible progression of luminal narrowing bilaterally since prior study. Suggest correlation with carotid ultrasound. 3. Multiple mediastinal lymph nodes largely unchanged in appearance from the previous CT chest of 01/16/2020. Review of Systems - Constitutional Reports no additional constitutional complaints, Denies lack of energy, Reports weight gain - Eyes Reports no additional eye complaints - ENT Reports no additional ear, nose, mouth, and throat complaints - Cardiovascular Reports no additional cardiovascular complaints - Respiratory Reports no additional respiratory complaints - Gastrointestinal Reports no additional gastrointestinal complaints - Genitourinary Genitourinary: Reports no additional male genitourinary complaints - Musculoskeletal Reports no additional musculoskeletal complaints - Integumentary/Breasts Skin/Breast: Reports no additional skin complaints - Neurologic Reports no additional neurologic complaints - Psychiatric Reports no additional psychiatric complaints - Endocrine Reports no additional endocrine complaints - Hematologic/Lymphatic Reports no additional hematologic/lymphatic complaints - Allergic/Immunologic Reports no additional allergic/immunologic complaints [facility] Medical History: Medical History (Last Reviewed 10/01/21 @ 07:56 by CATARINA Marr) Aortic valvular disease Arrhythmia Back pain CAD (coronary artery disease) Cancer COPD (chronic obstructive pulmonary disease) Elevated cholesterol History of chemotherapy Hx of radiation therapy Personal history of nicotine dependence PVD (peripheral vascular disease) Functional capacity: independent ambulation Patient : No Surgical History: Surgical History (Last Reviewed 10/01/21 @ 07:56 by CATARINA Mrar) History of laryngoscopy History of surgical removal of pilonidal cyst Hx of aortic valve replacement Hx of CABG Hx of colonoscopy Social History: Social History (Last Reviewed 10/01/21 @ 07:58 by CATARINA Marr) Living Situation History: Household Members: Spouse Housing: House Alcohol History Details: 1. How often do you have a drink containing alcohol?: e. 4 or more times a week 2. How many drinks containing alcohol do you have on a typical day when you are drinking?: b. 3 or 4 Tobacco History: Patient Tobacco Use Status: Former Tobacco user Cigarette Packs Per Day: 1 Years Smoked: 45 Smoke Quit Date: 12 yrs ago Second Hand Smoke Exposure: No Substance Use History: Substance Use Type: Marijuana Domestic Abuse History: Have you been hit, kicked, punched, or otherwise hurt by someone within the past year? If so, by whom?: No Do you feel safe in your current relationship?: Yes Is there a partner from a previous relationship who is making you feel unsafe now?: No Homicidal Assessment: Do you have a plan to hurt others: No Plan Do you have the means to hurt others: No Nutrition Assessment: Recently lost weight without trying: No Patient : No Occupation Assessmet: service: Yes Current occupational status: retired Oncology Screenings - ECOG Performance Status ECOG Performance Status: 0 Home Medications and Allergies Home Medications Medication Instructions Recorded Confirmed Type aspirin 81 mg tablet 81 mg PO DAILY 12/12/19 08/02/21 History cholecalciferol (vitamin D3) 50 50 mcg PO DAILY 03/29/20 08/02/21 History mcg (2,000 unit) tablet (Vitamin D3) metoprolol succinate 50 mg 50 mg PO DAILY 06/05/20 08/02/21 History tablet,extended release 24 hr rosuvastatin 40 mg tablet 40 mg PO DAILY 06/05/20 08/02/21 History omeprazole 40 mg capsule,delayed 40 mg PO QAM 08/02/21 10/01/21 History release Allergies Allergy/AdvReac Type Severity Reaction Status Date / Time No Known Allergies Allergy Verified 07/30/21 06:07 [No Known Allergies*] Exam Vital signs: Vital Signs Temp 97.4 F 10/01/21 07:53 Pulse 89 10/01/21 07:53 Resp 16 10/01/21 07:53 BP 170/97 H 10/01/21 07:53 Pulse Ox 98 10/01/21 07:53 O2 Del Method 10/01/21 07:53 Intake & Output 09/30/21 10/01/21 10/01/21 18:59 06:59 18:59 Other: Weight 78 kg [place] Weight in Grams [address] Weight 78 kg BMI result Body Mass Index 24.6 - Constitutional Present: no acute distress - Routine HEENT Exam Head: Present: normal inspection Eye: Present: normal appearance ENT: Present: mucous membranes moist - Routine Neck Exam Present: full ROM - Routine Respiratory Exam Present: CTAB - Routine Cardiovascular Exam Cardiovascular: Present: RRR, S1, S2 - Routine Abdominal Exam Present: soft, nontender - Routine Extremities Exam Present: nontender - Routine Back/Spine/Pelvis Exam Back/Spine: Present: full ROM - Routine Skin Exam Present: intact - Routine Neurological Exam Present: alert, oriented X3 - Routine Psychiatric Exam Present: normal affect Data - Labs CBC & Chem 7: 10/01/21 08:07 10/01/21 08:07 Assessment and Plan Patient Active problem list reviewed?: Yes (1) Head and neck cancer Status: Acute Assessment and plan: 71 year-old gentleman, with history of Moderately Differentiated Keratinizing Squamous Cell Carcinoma. He underwent combined modality therapy with radiation along with chemotherapy completed June 2013. He has done very well, so far. He recently had a laryngoscopic exam on March 11, by Dr. Dawn, which was negative. CEA level: 2.0. He had a CT scan of head and neck area, April 03, which revealed: 1. Posttreatment changes noted on the left side of the neck, with no convincing evidence for local recurrence or lymphadenopathy. 2. Extensive atheromatous calcifications of the carotid bulbs bilaterally with possible progression of luminal narrowing bilaterally since prior study. Suggest correlation with carotid ultrasound. 3. Multiple mediastinal lymph nodes largely unchanged in appearance from the previous CT chest of 01/16/2020. Other than the fact that he had COVID he has been doing very well. This is reassuring. PLAN: Will proceed with an ultrasound of the carotids to follow up on the abnormal CT scan report. His labs are normal. He will be following up with Dr. Dawn, in 6 months time. He will return in 12 months for a follow-up visit, however he knows to call me any time if he notices any changes. Thank you, Please send a copy to: Dr. Puneet Rubalcava. Dr. Maksim Claros. - Time Spent With Patient Time Spent with Patient (in minutes): 25
[2021-10-01 08:14] LABS: MANUAL DIFF FLAG NO
[2021-10-01 08:17] LABS: Basophils Percent Auto 0.4 % (0-2); Eosinophils Absolute Auto 0.3 X10*3/uL (0.0-0.4); Eosinophils Percent Auto 3.7 % (0-4); Hematocrit 42.2 % (42.0-52.0); Hemoglobin 13.8 g/dl (14.0-18.0); Imm Gran Abs Auto 0.02 X10*3/uL (0.00-0.03); Imm Gran Pct Auto 0.3 % (0.0-0.4); Lymphocytes Absolute Auto 0.8 X10*3/uL (1.2-4.9); Lymphocytes Percent Auto 11.1 % (20-40); Mean Corpuscular HGB Conc 32.7 g/dl (31.0-36.0); Mean Corpuscular Volume 85.6 fL (80.0-98.0); Mean Platelet Volume 9.5 fL (9.4-12.4); Monocytes Absolute Auto 0.6 X10*3/uL (0.1-1.2); Monocytes Percent Auto 8.5 % (2-11); Neutrophils Absolute Auto 5.7 x10*3/uL (2.0-8.3); Platelet Count 307 X10*3/uL (160-400); Red Blood Count 4.93 X10*6/uL (4.60-5.80); Red Cell Distribution Width 12.9 % (11.0-16.0); White Blood Count 7.5 X10*3/uL (4.8-10.8)
[2021-10-01 08:35] LABS: Alanine Aminotransferase 25 U/L (0-40); Albumin Level 4.5 g/dL (3.5-5.0); Alkaline Phosphatase 43 U/L (39-117); Anion Gap 11 (12-20); Aspartate Amino Transferase 26 U/L (5-37); Bilirubin Total 0.6 mg/dL (0.0-1.0); Blood Urea Nitrogen 11 mg/dL (9-16); Calcium 9.3 mg/dL (8.4-10.2); Carbon Dioxide 28 mmol/L (22-29); Chloride 105 mmol/L (96-108); Creatinine Clr Calc Pharmacy 74.6; Estimated Glomerular Filt Rate > 60; Glucose Random 119 mg/dL (60-115); Potassium 4.8 mmol/L (3.3-5.1); Sodium 139 mmol/L (135-145); Total Protein 7.2 g/dL (6.5-8.0)
--- NOTE | 2021-10-01 11:00 | HO.HEMONCSCH ---
US sent to [facility].
--- NOTE | 2021-10-01 13:56 | MHC.HEMONCMA ---
pt seen today vss,labs
[2022-10-02 07:56] VITALS: BP 83/48; PULSE 75; O2SAT 95; BMI 22.6
[2022-10-02 08:12] LABS: MANUAL DIFF FLAG NO
[2022-10-02 08:18] LABS: Basophils Percent Auto 0.3 % (0-2); Eosinophils Absolute Auto 0.1 X10*3/uL (0.0-0.4); Eosinophils Percent Auto 1.1 % (0-4); Hematocrit 35.6 % (42.0-52.0); Hemoglobin 11.1 g/dl (14.0-18.0); Imm Gran Abs Auto 0.05 X10*3/uL (0.00-0.03); Imm Gran Pct Auto 0.4 % (0.0-0.4); Lymphocytes Absolute Auto 0.6 X10*3/uL (1.2-4.9); Lymphocytes Percent Auto 5.2 % (20-40); Mean Corpuscular HGB Conc 31.2 g/dl (31.0-36.0); Mean Corpuscular Hemoglobin 25.4 pg (27.0-33.0); Mean Corpuscular Volume 81.5 fL (80.0-98.0); Mean Platelet Volume 8.8 fL (9.4-12.4); Monocytes Absolute Auto 1.1 X10*3/uL (0.1-1.2); Neutrophils Absolute Auto 9.4 x10*3/uL (2.0-8.3); Platelet Count 406 X10*3/uL (160-400); Red Blood Count 4.37 X10*6/uL (4.60-5.80); Red Cell Distribution Width 13.5 % (11.0-16.0); White Blood Count 11.4 X10*3/uL (4.8-10.8)
[2022-10-02 08:32] LABS: Alanine Aminotransferase 11 U/L (0-40); Alkaline Phosphatase 41 U/L (39-117); Anion Gap 16 (12-20); Aspartate Amino Transferase 15 U/L (5-37); Bilirubin Total 0.4 mg/dL (0.0-1.0); Blood Urea Nitrogen 15 mg/dL (9-16); Carbon Dioxide 24 mmol/L (22-29); Chloride 102 mmol/L (96-108); Creatinine Clr Calc Pharmacy 82.9; Estimated Glomerular Filt Rate > 60; Glucose Random 98 mg/dL (60-115); Potassium 4.8 mmol/L (3.3-5.1); Sodium 137 mmol/L (135-145); Total Protein 7.3 g/dL (6.5-8.0)
--- NOTE | 2022-10-02 08:58 | PM.HEMONCPN ---
Medical Summary - Medical Summary Date of Service: 10/02/22 Chief complaint: Follow-up for: Head and neck carcinoma. Primary Care Provider: Justice Rubalcava MD Medical Summary: DIAGNOSES: 1. 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 2. Positive left jugulodigastric lymph node. 3. Now with disease recurrence. Developed left auricular cancer, status post surgery and radiation March. 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 Status post composite resection of the maxilla, mandible, SNLD, PEC flap. Pathology showed: PN1,N1,DOI, 1.3 cm Had PEG tube placed on 06/19/2022. CURRENT THERAPY: Combined modality therapy with radiation along with Cisplatin weekly 80 mg per meter square, between July 05, 2013 and August 23, 2013, he had 8 treatments. Status post surgical resection and radiation therapy further recurrence. Interval History Interval history: History of Present Illness: This is a pleasant 72 year-old gentleman, here for a follow-up visit. He tells me he is not doing too well. Since his last visit here he has had disease recurrence as follows: CT scan of the soft tissues of the neck and chest: Ill-defined enhancing ulcerating mass within the left retro molar trigone measuring 19 x 21 x 11 mm. Compatible with biopsy-proven squamous cell carcinoma. There is asymmetric thickening of the left buccinator muscle. No evidence of extension into the deep spaces of the head or neck. No evidence of extension into the deep spaces of the head or neck. No evidence of local osseous erosion. There is thickening of the right thigh row arytenoid and posterior [place] 0 pharyngeal muscles as well as medialization of the right vocal cord and mild dilation of the right laryngeal ventricle suggestive of right vocal cord paralysis. There are multiple asymmetrically enlarged lymph nodes in the left submandibular space measuring up to 6 mm. And a 5 mm node in the left submental space. Developed left auricular cancer, status post surgery and radiation March. 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 Status post composite resection of the maxilla, mandible, SNLD, PEC flap. He underwent surgery by Dr. Morris Hess and reconstruction by Dr. Stefan Holley. At [facility]. Pathology showed: PN1,N1,DOI, 1.3 cm Had PEG tube placed on 06/19/2022. He then received radiation therapy under the care of Dr. Dinh. He had IMRT/VMA T2 primary surgical bed. Treatment site: Left retromolar trigone, left neck. He received 08/13/1999 cGy in 33 fractions. He feels pain at the surgical site. He is taking Tylenol which appears to be helping. He does have some oxycodone, case he needs something stronger. He feels sore throat, and pain in his ear and jaw. He has dysphagia. He can only swallow soft foods like yogurt ice cream but not solids. He still gets hoarseness, intermittently. He has had headache. He denies noticing any adenopathy. He has not had any cough nor sputum production. No chest pain or trouble breathing. No abdominal pain nausea vomiting heartburn indigestion. His bowels are working without any gross blood in it. He is due for of colonoscopy in September. He does not a have good appetite. He has a G-tube for feeding. He has lost weight. His energy is low. His spirits are down. Rest of the review of systems is unremarkable. PREVIOUS HISTORY: His and him had COVID about a month ago. They are usually pretty good about masking up however their [id number] and they went to the and that is where they caught it. It was not too bad. First 2 days he felt he had the flu. However he still does not have much of a sense of taste. Though sometimes he gets a little bit. He has been trying to eat too much to find something to taste. Other than that, he has been doing well. He had an exam by Dr. Dawn, March 11. He said the throat looked great. He even went further down. He tells me that he notices that the swelling on the left neck has gone down. Even since last week. He had a CT scan of the neck on April 03: 1. Posttreatment changes noted on the left side of the neck, with no convincing evidence for local recurrence or lymphadenopathy. 2. Extensive atheromatous calcifications of the carotid bulbs bilaterally with possible progression of luminal narrowing bilaterally since prior study. Suggest correlation with carotid ultrasound. 3. Multiple mediastinal lymph nodes largely unchanged in appearance from the previous CT chest of 01/16/2020. Review of Systems - Constitutional Reports system reviewed and no additional complaints, except as documented, Reports anorexia, Reports fatigue, Reports lack of energy, Reports malaise, Reports weight loss, Denies fever(s) - Eyes Reports system reviewed and no additional complaints, except as documented - ENT Reports system reviewed and no additional complaints, except as documented - Cardiovascular Reports system reviewed and no additional complaints, except as documented - Respiratory Reports no additional respiratory complaints - Gastrointestinal Reports system reviewed and no additional complaints, except as documented Comments: Dysphagia - Genitourinary Genitourinary: Reports no additional male genitourinary complaints - Musculoskeletal Reports system reviewed and no additional complaints, except as documented - Integumentary/Breasts Skin/Breast: Reports no additional skin complaints - Neurologic Reports system reviewed and no additional complaints, except as documented - Psychiatric Reports system reviewed and no additional complaints, except as documented - Endocrine Reports no additional endocrine complaints - Hematologic/Lymphatic Reports system reviewed and no additional complaints, except as documented - Allergic/Immunologic Reports system reviewed and no additional complaints, except as documented PMFSH Medical History: Medical History (Last Reviewed 10/02/22 @ 07:57 by Tam Wagner) Aortic valvular disease Arrhythmia Back pain CAD (coronary artery disease) Cancer COPD (chronic obstructive pulmonary disease) COVID-19 Elevated cholesterol History of skin cancer Oral lesion Personal history of nicotine dependence PVD (peripheral vascular disease) Functional capacity: independent ambulation Patient : No Surgical History: Surgical History (Last Reviewed 10/02/22 @ 07:57 by Tam Wagner) History of endarterectomy Onset Date: ~2016 History of esophagogastroduodenoscopy (EGD) History of laryngoscopy History of surgical removal of pilonidal cyst Hx of aortic valve replacement Hx of CABG Hx of colonoscopy Status post transcatheter aortic valve replacement (TAVR) using bioprosthesis Social History: Social History (Last Reviewed 10/02/22 @ 07:57 by Tam Wagner) Living Situation History: Household Members: Spouse Housing: House Alcohol History Details: 1. How often do you have a drink containing alcohol?: e. 4 or more times a week 2. How many drinks containing alcohol do you have on a typical day when you are drinking?: b. 3 or 4 Tobacco History: Patient Tobacco Use Status: Former Tobacco user Cigarette Packs Per Day: 1 Years Smoked: 45 Smoke Quit Date: 11 yr ago Second Hand Smoke Exposure: No Substance Use History: Substance Use Type: Marijuana Domestic Abuse History: Have you been hit, kicked, punched, or otherwise hurt by someone within the past year? If so, by whom?: No Do you feel safe in your current relationship?: Yes Is there a partner from a previous relationship who is making you feel unsafe now?: No Homicidal Assessment: Do you have a plan to hurt others: No Plan Do you have the means to hurt others: No Nutrition Assessment: Recently lost weight without trying: No Patient : No Occupation Assessmet: service: Yes Current occupational status: retired Oncology Screenings - ECOG Performance Status ECOG Performance Status: 1 Home Medications and Allergies Home Medications Medication Instructions Recorded Confirmed Type aspirin 81 mg tablet 81 mg PO DAILY 12/12/19 10/02/22 History metoprolol succinate 50 mg 50 mg PO DAILY 06/05/20 10/02/22 History tablet,extended release 24 hr rosuvastatin 40 mg tablet 40 mg PO DAILY 06/05/20 10/02/22 History omeprazole 40 mg capsule,delayed 40 mg PO QAM 08/02/21 10/02/22 History release acetaminophen 500 mg tablet 500 mg PO Q6H PRN pain 03/26/22 10/02/22 History oxycodone 5 mg tablet 5 mg PO Q4H PRN pain 03/26/22 06/26/22 History Allergies Allergy/AdvReac Type Severity Reaction Status Date / Time No Known Allergies Allergy Verified 10/02/22 07:58 [No Known Allergies*] Exam Vital signs: Vital Signs Temp 97.4 F 10/01/21 07:53 Pulse 75 10/02/22 07:56 Resp 16 10/01/21 07:53 BP 83/48 L 10/02/22 07:56 Pulse Ox 95 10/02/22 07:56 O2 Del Method Room Air 10/02/22 07:56 Intake & Output 10/01/22 10/02/22 10/02/22 18:59 06:59 18:59 Other: Weight 71.5 kg Weight in Grams [id number] Weight 71.5 kg BMI result Body Mass Index 22.6 - Constitutional Present: no acute distress - Routine HEENT Exam Head: Present: normal inspection Eye: Present: normal appearance ENT: Present: mucous membranes moist - Routine Neck Exam Present: full ROM - Routine Respiratory Exam Present: CTAB - Routine Cardiovascular Exam Cardiovascular: Present: RRR, S1, S2 - Routine Abdominal Exam Present: soft, nontender - Routine Extremities Exam Present: nontender - Routine Back/Spine/Pelvis Exam Back/Spine: Present: full ROM - Routine Skin Exam Present: intact - Routine Neurological Exam Present: alert, oriented X3 - Routine Psychiatric Exam Present: normal affect Data - Labs CBC & Chem 7: 10/02/22 08:11 10/02/22 08:11 Assessment and Plan Patient Active problem list reviewed?: Yes (1) Head and neck cancer Status: Acute Assessment and plan: 71 year-old gentleman, with history of Moderately Differentiated Keratinizing Squamous Cell Carcinoma. He underwent combined modality therapy with radiation along with chemotherapy completed June 2013. He has done very well, so far. He recently had a laryngoscopic exam on March 11, by Dr. Dawn, which was negative. CEA level: 2.0. He had a CT scan of head and neck area, April 03, which revealed: 1. Posttreatment changes noted on the left side of the neck, with no convincing evidence for local recurrence or lymphadenopathy. 2. Extensive atheromatous calcifications of the carotid bulbs bilaterally with possible progression of luminal narrowing bilaterally since prior study. Suggest correlation with carotid ultrasound. 3. Multiple mediastinal lymph nodes largely unchanged in appearance from the previous CT chest of 01/16/2020. He has had disease involving his left ear, oral cavity and jaw. CT scan of the soft tissues of the neck and chest: Ill-defined enhancing ulcerating mass within the left retro molar trigone measuring 19 x 21 x 11 mm. Compatible with biopsy-proven squamous cell carcinoma. There is asymmetric thickening of the left buccinator muscle. No evidence of extension into the deep spaces of the head or neck. No evidence of extension into the deep spaces of the head or neck. No evidence of local osseous erosion. There is thickening of the right thigh row arytenoid and posterior [place] 0 pharyngeal muscles as well as medialization of the right vocal cord and mild dilation of the right laryngeal ventricle suggestive of right vocal cord paralysis. There are multiple asymmetrically enlarged lymph nodes in the left submandibular space measuring up to 6 mm. And a 5 mm node in the left submental space. Developed left auricular cancer, status post surgery and radiation March. 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 Status post composite resection of the maxilla, mandible, SNLD, PEC flap. He underwent surgery by Dr. Morris Hess and reconstruction by Dr. Stefan Holley. At [facility]. Pathology showed: PN1,N1,DOI, 1.3 cm Had PEG tube placed on 06/19/2022. He then received radiation therapy under the care of Dr. Dinh. He had IMRT/VMA T2 primary surgical bed. Treatment site: Left retromolar trigone, left neck. He received 08/13/1999 cGy in 33 fractions. He is still rather weak. Has pain at the surgical site. PLAN: He has a follow-up appointment with Dr. Holley on Thursday. He will be following up with Dr. Jalloh on 10/15. He will have repeat PET scan in a month's time. He will see Dr. Hess, in November. He will return in 6 months for a follow-up visit, however he knows to call me any time. Thank you, Please send a copy to: Dr. Puneet Rubalcava. Dr. Maksim Claros. - Time Spent With Patient Time Spent with Patient (in minutes): 30
--- NOTE | 2022-10-02 09:06 | MHC.HEMONCMA ---
patient seen today for head and neck cancer, vs, labs, following up with provider in 6 months
== END 2022-12-24 | disposition home or self-care (01) ==
LOC: HO.ONC 08:00
PROVIDERS: PCP Internal Medicine; Visit Provider Internal Medicine Medical Oncology
DX: Z85.22 Personal history of malignant neoplasm of nasal cavities, middle ear, and accessory sinuses (principal); R59.0 Localized enlarged lymph nodes; Z92.3 Personal history of irradiation; Z92.21 Personal history of antineoplastic chemotherapy
CPT/HCPCS: 36415; 80053; 82378; 85025; 99213; 99214